=== PATIENT | female | born 1960 | race Caucasian/White ===

== ENCOUNTER → 2017-12-05 10:53 | Outpatient (CLI) | payer BC, SELFPAY ==
--- NOTE | 2017-12-05 10:57 | MM_ITS ---
MM Dig screening mamm BI w/CAD ORDERING PHYSICIAN : Basil Chaudhry MD PATIENT AGE: 57 years GENDER: Female COMPARISON: March 2014, February 2013, February 2012 INDICATION: ITS.REASON: Routine Mammogram Screening no hormones. No complaints noncontributory family history TECHNIQUE: Standard CC and MLO images were obtained. R2 CAD reviewed. FINDINGS: Moderate density breast,/Moderately dense areas of breast. .. Slight decreased sensitivity in areas of breast with increased density. Breast tissue mainly distributed through centralbreast. However overall pattern is similar to previous studies. There has been decreased prominence progression of the fibroglandular elements over time reflecting typical aging change.. No new findings in either breast. No dominant mass nor suspicious calcifications nor good evidence of architectural distortion either breast. Follow-up in one year adequate IMPRESSION: . No new findings of significant concern. Bilateral follow-up in one year. Moderately dense breast bilaterally but with no new areas of concern BI-RADS Category: 2 Benign Finding(s) RECOMMENDED FOLLOW-UP: 1YR 1 YEAR FOLLOW-UP (A letter has been sent to the patient regarding results of the study.)
== END ==
PROVIDERS: PCP Internal Medicine; Visit Provider Nurse Practitioner Obstetrics & Gynecology
DX: Z12.31 Encounter for screening mammogram for malignant neoplasm of breast (principal)
CPT/HCPCS: 77067

== ENCOUNTER → 2018-12-27 12:23 | Outpatient (CLI) | payer BC, SELFPAY ==
--- NOTE | 2018-12-27 15:00 | CT_ITS ---
PROCEDURE: CT ABDOMEN PELVIS WO CON CLINICAL HISTORY: LOWER ABD PAIN Mid left lower quadrant pain COMPARISON: [facility] DIG MAMM-SCREEN [facility] from 04/08/2014 [facility] MM Dig screening mamm BI w/CAD from 12/05/2017 TECHNIQUE: Axial images obtained with sagittal and coronal reformats. All CT scans at the facility use one or more dose reduction, viz: automated exposure control, ma/kV adjustment per patient size (including targeted exams where dose is matched to indication, i.e. head), or iterative reconstruction technique. FINDINGS: There is a 16 mm nodular opacity overlying the right subareolar region. Please correlate with mammogram and possible right breast ultrasound. The lung bases are clear. The liver, gallbladder, spleen, adrenal glands, pancreas, and kidneys have an unremarkable unenhanced appearance. No renal or ureteral calculi. No evidence of appendicitis. No intestinal obstruction or free air. There is mild thickening of the sigmoid colon along with sigmoid diverticulosis. Along superior and medial aspect of the sigmoid colon there appears to be a small inflamed diverticulum with mild stranding of the pericolic fat. No abscess or perforation. No acute bony anomaly IMPRESSION: 1. Suspect mild diverticulitis of the sigmoid colon. No abscess or perforation 2. 16 mm subareolar nodular opacity of the right breast which may be better evaluated with mammography and ultrasound. Dictated by: Prashanth Orlando MD 12/28/2018 08:48 Electronically signed by Prashanth Orlando MD in [place] 12/29/2018 10:36
== END ==
PROVIDERS: PCP Internal Medicine; Visit Provider Internal Medicine
DX: R10.30 Lower abdominal pain, unspecified (principal)
CPT/HCPCS: 74176

== ENCOUNTER → 2019-01-29 09:06 | Outpatient (CLI) | payer BC, SELFPAY ==
--- NOTE | 2019-01-29 09:07 | MM_ITS ---
PROCEDURE: MM DIG SCREENING MAMM BI W/CAD Patient Age:58Y CLINICAL INDICATION: routine screening mamm 58-year-old. Routine screening mammogram. No hormones but no new complaints but CT December 2018 question density right breast COMPARISON: DIGMAMMS MAMMOGRAM SCREEN-[employer] N/C from 10/14/2008 [facility] DIGITAL MAMM-SCREEN BILATERAL from 02/09/2010 [facility]B DIGITAL MAMM-SCREEN BILATERAL from 03/15/2011 DMDXUAVL DIG MAMM-DX UNI ADD VIEWS-LT from 03/31/2011 [facility]B DIGITAL MAMM-SCREEN BILATERAL from 03/13/2012 [facility] DIG MAMM-SCREEN [facility] from 03/19/2013 [facility] DIG MAMM-SCREEN [facility] from 04/08/2014 [facility] MM Dig screening mamm BI w/CAD from 12/05/2017 CT ABDOMEN PELVIS WO CON from 12/27/2018 TECHNIQUE: Standard CC and MLO images were obtained. R2 CAD reviewed. FINDINGS: Moderately dense fibroglandular densities are seen in the central portions of both breast. Right breast: there is a stable round immediate right nipple. This is the round density noted on CT and actually is been stable since mammograms dating back to 2009. It is been attributed to attributed to nipple shadow many of the interval mammograms because of its proximity to the nipple It measures up to 15 mm AP. Although appears slightly denser on today's CC view and MLO views versus previous studies-. I suspect this is most likely due to technical features positioning and technique.. A single punctate benign calcification is seen at its medial margin. However at this point and given its appearance on CT would suggest the patient return for ultrasound and spot views here to include CC MLO and 90 degree spot views... Left breast no new findings of significant concern. Stable. Follow-up 1 year IMPRESSION: Ovoid nodular density immediate posterior to the Right nipple has been present and basically stable since 2009. . (. 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
== END ==
PROVIDERS: PCP Internal Medicine; Visit Provider Nurse Practitioner Obstetrics & Gynecology
DX: Z12.31 Encounter for screening mammogram for malignant neoplasm of breast (principal)
CPT/HCPCS: 77067

== ENCOUNTER → 2019-02-02 14:46 | Outpatient (CLI) | payer BC, SELFPAY ==
--- NOTE | 2019-02-02 14:47 | US_ITS ---
PROCEDURE: US BREAST RT COMPLETE CLINICAL INDICATION: abnormal finding in RT Breast-KNOT/LUMP Palpable area behind the right nipple COMPARISON: [facility] DIG MAMM-SCREEN [facility] from 04/08/2014 MM DIG SCREENING MAMM BI W/CAD from 01/29/2019 FINDINGS: There is a 14 mm hypoechoic nodule with dense posterior acoustical shadowing in the retroareolar region corresponding to the mammographic abnormality. An adjacent cyst is noted at this area lateral to the nodule measuring 5 mm. No other significant anomalies are evident. IMPRESSION: 14 mm hypoechoic nodule with dense posterior acoustical shadowing. This corresponds to the mammographic abnormality. Due to the posterior shadowing and the overall slight increased density would recommend fine needle aspiration/core biopsy with sonographic guidance. BI-RADS category 4 suspicious. Recommend ultrasound-guided core biopsy. Dictated by: Prashanth Orlando MD 02/08/2019 15:41 Electronically signed by Prashanth Orlando MD in [place] 02/08/2019 15:41
== END ==
PROVIDERS: PCP Internal Medicine; Visit Provider Nurse Practitioner Obstetrics & Gynecology
DX: N63.10 Unspecified lump in the right breast, unspecified quadrant (principal)
CPT/HCPCS: 76641

== ENCOUNTER → 2019-03-06 12:36 | Outpatient (CLI) | payer BC, SELFPAY ==
--- NOTE | 2019-03-06 12:37 | US_ITS ---
PROCEDURE: US BIOPSY BREAST CLINICAL INDICATION: US Guided Right Breast Biopsy-Abnormal Mamm COMPARISON: US BREAST RT COMPLETE from 02/02/2019 FINDINGS: Following obtaining informed consent under aseptic conditions and local anesthesia with 1 percent buffered lidocaine, using ultrasound guidance, fine needle aspiration was performed of the hypoechoic periareolar nodule. Following this, 3 core biopsies were obtained with an 18 gauge Karlos-Cut needle. The course did appear to me to contain adequate tissue. The patient tolerated the procedure well without evidence of immediate complication. Pathology: Benign breast with stromal fibrosis suggestive of fibroma toys change. Negative for carcinoma. FNA right breast negative for malignancy IMPRESSION: Successful sonographic guided fine needle aspiration and core biopsy of right breast nodule showing benign findings. Suggest 6 month mammogram and ultrasound follow-up per routine protocol Dictated by: Prashanth Orlando MD 03/07/2019 11:40 Electronically signed by Prashanth Orlando MD in [place] 03/08/2019 18:28
== END ==
PROVIDERS: PCP Internal Medicine; Visit Provider Nurse Practitioner Obstetrics & Gynecology
DX: R92.8 Other abnormal and inconclusive findings on diagnostic imaging of breast (principal); N63.41 Unspecified lump in right breast, subareolar
CPT/HCPCS: 10005; 76942

== ENCOUNTER → 2019-10-11 14:19 | Outpatient (CLI) | payer BC, SELFPAY ==
--- NOTE | 2019-10-11 14:19 | US_ITS ---
PROCEDURE: MM DIG MAMM DX UNILAT RT CAD Digital Breast Tomosynthesis Included CLINICAL INDICATION: 6 mo follow up COMPARISON: [facility] DIG MAMM-SCREEN [facility] from 04/08/2014 [facility] MM Dig screening mamm BI w/CAD from 12/05/2017 MM DIG SCREENING MAMM BI W/CAD from 01/29/2019 US BREAST RT COMPLETE from 02/02/2019 US BREAST RT COMPLETE from 10/11/2019 TECHNIQUE: Standard CC and MLO images and 3D Tomosynthesis was obtained. R2 CAD reviewed. FINDINGS: Average fibroglandular tissue. 1.9 x 1.7 cm lobulated nodule in the retroareolar region on the right with coarse central calcification not significantly changed. No new nodules evident. No malignant appearing mass or malignant-appearing microcalcification. Right breast ultrasound: Hypoechoic retroareolar nodule with posterior acoustical shadowing noted similar to the previous exam with a small adjacent cyst. No new nodules apparent. IMPRESSION: BI-RAD Category: 2 Benign Finding(s) FOLLOW-UP: 6M 6Month Follow-up (A letter has been sent to the patient regarding results of the study.) Dictated by: Prashanth Orlando MD 10/12/2019 11:55 Electronically signed by Prashanth Orlando MD in [place] 10/12/2019 11:55
== END ==
PROVIDERS: PCP Internal Medicine; Visit Provider Nurse Practitioner Obstetrics & Gynecology
DX: R92.8 Other abnormal and inconclusive findings on diagnostic imaging of breast (principal)
CPT/HCPCS: 76641; 77061; 77065; G0279

== ENCOUNTER → 2020-07-11 12:45 | Outpatient (CLI) | payer BC, SELFPAY | PROVIDERS: PCP Internal Medicine; Visit Provider Internal Medicine | DX: G47.33 Obstructive sleep apnea (adult) (pediatric) (principal); G47.10 Hypersomnia, unspecified; R06.83 Snoring | CPT/HCPCS: G0399 ==

== ENCOUNTER → 2020-08-14 08:49 | Outpatient (CLI) | payer BC, SELFPAY ==
--- NOTE | 2020-08-14 08:54 | FL_ITS ---
PROCEDURE: FL UPPER GI W AIR CLINICAL INDICATION: EPIGASTRIC PAIN, NAUSEA Stomach pain COMPARISON: No exams were available for comparison TECHNIQUE: FLUOROSCOPY TIME : FINDINGS: The esophagus, stomach, and duodenum have an unremarkable appearance.There is no evidence of hiatal hernia. No ulcer or mass evident. No mucosal abnormalities apparent. There is normal peristalsis. The duodenal C-loop is nondisplaced. IMPRESSION: Negative upper GI Dictated by: Prashanth Orlando MD 08/14/2020 14:55 Prashanth Orlando MD in [place] 08/14/2020 14:55
== END ==
PROVIDERS: PCP Internal Medicine; Visit Provider Internal Medicine
DX: R10.13 Epigastric pain (principal); R11.0 Nausea
CPT/HCPCS: 74246

== ENCOUNTER → 2020-08-29 10:39 | Outpatient (CLI) | payer BC, SELFPAY ==
[2020-08-29 10:41] LABS: Microscopic, Urine URINE MICROSCOPIC (MICROSCOPIC)
[2020-08-29 11:09] LABS: Basophils % 0.9 % (0.1-2.0); Eosinophils # 0.1 K/mm3 (0.0-0.4); Eosinophils % 2.2 % (0.1-12.0); Hematocrit 43.3 % (37.0-47.0); Hemoglobin 13.9 g/dL (12.2-16.2); Lymphocytes # 1.5 K/mm3 (0.7-4.5); Lymphocytes % 31.2 % (10-50); Mean Corpuscular HGB Conc 32.2 g/dL (31.8-35.4); Mean Corpuscular Hemoglobin 30.5 pg (27.0-31.2); Mean Corpuscular Volume 94.6 fl (81-99); Mean Platelet Volume 7.6 fl (7.4-10.4); Monocytes # 0.4 K/mm3 (0.1-1.0); Monocytes % 7.5 % (1.7-9.3); Neutrophils # 2.8 K/mm3 (1.8-7.8); Neutrophils % 58.2 % (37.0-80.0); Platelet Count 406 K/mm3 (142-424); Red Blood Count 4.57 M/mm3 (4.20-5.40); Red Cell Distribution Width 12.7 % (11.5-17.5); White Blood Count 4.8 K/mm3 (4.8-10.8)
[2020-08-29 11:17] LABS: Appearance,Urine CLEAR (Clear); Bilirubin,Urine Negative (Negative); Blood, Urine Negative (Negative); Color,Urine YELLOW (Yellow); Glucose,Urine (UA) Negative (Negative); Ketones,Urine Negative (Negative); Leukocyte Esterase,Urine 1+ (Negative); Nitrate,Urine Negative (Negative); PH,Urine 6.5 (5.0-8.5); Protein,Urine Negative (Negative); Specific Gravity, Urine 1.015 (1.005-1.030); Urobilinogen,Urine 0.2 EU/dl (0.2)
[2020-08-29 11:45] LABS: Chloride 104 mmol/L (98-107); Potassium 4.4 mmoL/L (3.5-5.1); Sodium 141 mmol/L (136-145)
[2020-08-29 11:47] LABS: Amylase 64 U/L (30-110)
[2020-08-29 11:48] LABS: Alanine Aminotransferase 20 U/L (12-78); Albumin Level 4.7 g/dl (3.5-5.0); Albumin/Globulin Ratio 1.9 (1.1-1.8); Alkaline Phosphatase 70 U/L (38-126); Anion Gap 12.4 mEq/L (5-15); Aspartate Amino Transferase 22 U/L (14-36); Bilirubin,Total 0.7 mg/dl (0.2-1.3); Blood Urea Nitrogen 8 mg/dl (7-17); Calcium 9.7 mg/dl (8.4-10.2); Carbon Dioxide 29 mmol/L (22.0-30.0); Estimated Glomerular Filt Rate 64 ml/min (>60); GFR (African American) 78 ML/MIN (>60); Globulin 2.5 g/dL (1.3-3.2); Glucose 106 mg/dl (74-100); Total Protein,Serum 7.2 g/dl (6.3-8.2)
== END ==
PROVIDERS: Visit Provider Internal Medicine
DX: R10.11 Right upper quadrant pain (principal); R10.31 Right lower quadrant pain; R19.7 Diarrhea, unspecified
CPT/HCPCS: 36415; 80053; 81001; 82150; 85025; 87086

== ENCOUNTER → 2020-09-03 10:45 | Outpatient (CLI) | payer BC, SELFPAY ==
--- NOTE | 2020-09-03 10:52 | US_ITS ---
PROCEDURE: US ABDOMEN COMPLETE CLINICAL INDICATION: RUQ PAIN,RLQ PAIN COMPARISON: US RUQ US RUQ-(ABD LTD)1ORGAN/QUAD/FU from 05/07/2014 FINDINGS: PANCREAS: The visualized pancreas is unremarkable. Tail is partially obscured. LIVER: Diffuse fatty infiltration of the liver is noted. No focal liver lesions are noted. No intra or extrahepatic biliary dilation. The portal vein is patent demonstrates appropriate directional flow. RIGHT KIDNEY: Unremarkable. Normal size and echogenicity. No hydronephrosis LEFT KIDNEY: Unremarkable. Normal size and echogenicity. No hydronephrosis GALLBLADDER: No gallstones, gallbladder wall thickening, pericholecystic fluid, or biliary dilatation. Sludge is noted in the gallbladder. AORTA: No evidence of aneurysmal dilatation. SPLEEN: Unremarkable. Normal size and echogenicity ASCITES: None demonstrated. IMPRESSION: Sludge in the gallbladder. Fatty infiltration of the liver. Dictated by: Nikole Stephenson 09/03/2020 13:31 Nikole Stephenson in [place] 09/03/2020 13:31
== END ==
PROVIDERS: PCP Internal Medicine; Visit Provider Internal Medicine
DX: R10.811 Right upper quadrant abdominal tenderness (principal); R10.812 Left upper quadrant abdominal tenderness
CPT/HCPCS: 76700

== ENCOUNTER → 2020-09-10 08:37 | Outpatient (CLI) | payer BC, SELFPAY ==
--- NOTE | 2020-09-10 09:06 | NM_ITS ---
PROCEDURE: NM HEPATOBILIARY WO PHARM CLINICAL INDICATION: RUQ PAIN, GALLBLADDER SLUDGE, DIARRHEA COMPARISON: US US ABDOMEN COMPLETE from 09/03/2020 TECHNIQUE: DOSE: 8.46 mCi technetium Choletec. Fatty meal was given with Ensure FINDINGS: Homogeneous activity is present within the hepatic parenchyma. Activity is present in the gallbladder by 10 minutes. Activity is present in the small bowel by 10 minutes. The gallbladder ejection fraction is calculated to be 70 percent. No pain reported with fatty meal ingestion. IMPRESSION: Unremarkable hepatobiliary scan with normal gallbladder ejection fraction Dictated by: Prashanth Orlando MD 09/10/2020 12:54 Prashanth Orlando MD in [place] 09/10/2020 12:54
--- NOTE | 2020-09-10 09:33 | HMH.ITSHM ---
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 []ROSUVASTATIN ASA LEVOTHYROXINE VITAMIN D3 COQ10 FAMOTIDINE OMEPRAZOLE
== END ==
PROVIDERS: PCP Internal Medicine; Visit Provider Internal Medicine
DX: K82.8 Other specified diseases of gallbladder (principal); R10.11 Right upper quadrant pain; R19.7 Diarrhea, unspecified
CPT/HCPCS: 78226

== ENCOUNTER → 2020-09-16 08:21 | Outpatient (CLI) | payer BC, SELFPAY ==
[2020-09-16 08:24] LABS: Adenovirus F 40/41, stool Not Detected (NotDetected); Astrovirus Not Detected (NotDetected); Campylobacter Not Detected (NotDetected); Cryptosporidium Not Detected (NotDetected); Cyclospora Cayetanesis Not Detected (NotDetected); Entamoeba histolytica Not Detected (NotDetected); Enteroaggregative E coli Not Detected (NotDetected); Enteropathogenic E coli Not Detected (NotDetected); Enterotoxigenic E coli Not Detected (NotDetected); Giardia lamblia Not Detected (NotDetected); Norovirus Not Detected (NotDetected); Plesimonas Shigalloides, PCR Not Detected (NotDetected); Rotavirus A Not Detected (NotDetected); Salmonella, PCR Not Detected (NotDetected); Sapovirus Not Detected (NotDetected); Shiga-like toxin E coli Not Detected (NotDetected); Shigella Enterovasive E coli Not Detected (NotDetected); Vibrio Cholerae Not Detected (NotDetected); Vibrio, PCR Not Detected (NotDetected); Yersinia Entercolitica, PCR Not Detected (NotDetected)
[2020-09-16 14:37] LABS: Clostridium Difficile A/B, PCR Detected (NotDetected)
== END ==
PROVIDERS: Visit Provider Internal Medicine
DX: R19.7 Diarrhea, unspecified (principal); A04.72 Enterocolitis due to Clostridium difficile, not specified as recurrent
CPT/HCPCS: 87205; 87507

== ENCOUNTER → 2020-11-18 17:29 | Outpatient (CLI) | payer BC, SELFPAY ==
[2020-11-18 17:32] LABS: Adenovirus F 40/41, stool Not Detected (NotDetected); Astrovirus Not Detected (NotDetected); Campylobacter Not Detected (NotDetected); Clostridium Difficile A/B, PCR Not Detected (NotDetected); Cryptosporidium Not Detected (NotDetected); Cyclospora Cayetanesis Not Detected (NotDetected); Entamoeba histolytica Not Detected (NotDetected); Enteroaggregative E coli Not Detected (NotDetected); Enteropathogenic E coli Not Detected (NotDetected); Enterotoxigenic E coli Not Detected (NotDetected); Giardia lamblia Not Detected (NotDetected); Norovirus Not Detected (NotDetected); Plesimonas Shigalloides, PCR Not Detected (NotDetected); Rotavirus A Not Detected (NotDetected); Salmonella, PCR Not Detected (NotDetected); Sapovirus Not Detected (NotDetected); Shiga-like toxin E coli Not Detected (NotDetected); Shigella Enterovasive E coli Not Detected (NotDetected); Vibrio Cholerae Not Detected (NotDetected); Vibrio, PCR Not Detected (NotDetected); Yersinia Entercolitica, PCR Not Detected (NotDetected)
== END ==
PROVIDERS: Visit Provider Internal Medicine
DX: R19.7 Diarrhea, unspecified (principal)
CPT/HCPCS: 87507

== ENCOUNTER → 2020-11-24 09:57 | Outpatient (POV) | payer BC, SELFPAY | PROVIDERS: Visit Provider Nurse Practitioner Family | DX: Z00.00 Encounter for general adult medical examination without abnormal findings (principal) ==

== ENCOUNTER → 2020-11-24 17:07 | Outpatient (CLI) | payer BC, SELFPAY | PROVIDERS: Visit Provider Nurse Practitioner Family | DX: A04.72 Enterocolitis due to Clostridium difficile, not specified as recurrent (principal); R19.7 Diarrhea, unspecified; R11.0 Nausea | CPT/HCPCS: 87493 ==

== ENCOUNTER → 2020-12-30 11:49 | Outpatient (CLI) | payer BC, SELFPAY | PROVIDERS: PCP Internal Medicine; Visit Provider Internal Medicine | DX: Z20.822 Contact with and (suspected) exposure to COVID-19 (principal); U07.1 COVID-19 | CPT/HCPCS: U0003 ==

== ENCOUNTER 2021-01-01 11:52 | Emergency (ER) | payer BC, SELFPAY ==
[2021-01-01 11:52] VITALS: BP 90/54; PULSE 69; RESP 16; TEMP 37.3; O2SAT 98; BMI 27.1
--- NOTE | 2021-01-01 11:57 | XR_ITS ---
PROCEDURE: XR CHEST PORTABLE CLINICAL HISTORY: cough COMPARISON: CR CXR1 CHEST-PORTABLE from 05/09/2012 FINDINGS: The cardiomediastinal silhouette and pulmonary vascularity are within normal limits. The lungs are clear without infiltrates, suspicious nodules, or pleural effusions. No acute bony abnormalities. IMPRESSION: No acute findings. Dictated by: Prashanth Orlando MD 01/01/2021 13:05 Prashanth Orlando MD in [place] 01/01/2021 13:05
--- NOTE | 2021-01-01 11:58 | HMH.EDGENADL ---
ED Disposition Clinical Impression: COVID-19 Fatigue Qualifiers: Fatigue type: unspecified Qualified Code(s): R53.83 - Other fatigue Disposition: Home, Self-Care Condition on Discharge: Fair Instructions: DI for COVID-19 (Suspected or Confirmed ), DI for Dehydration -- Adult, DI for Fatigue Additional Instructions: You have been evaluated for body aches, fatigue, secondary to COVID-19. Please stay hydrated. Take Tylenol and ibuprofen. Follow-up with your primary care doctor. Return to the emergency department for any new or worsening symptoms. Time of Disposition: 13:32 - Critical Care Critical Care Time: No Attestation: On , the high probability of a clinically significant, sudden or life threatening deterioration of the following system(s) required my full and direct attention, intervention and personal management. The time I documented below is in addition to time spent performing reported procedures but includes the following listed in this critical care notation. Medical Decision Making - Medical Records Medical records reviewed: Yes: I reviewed the patient's medical records. - Sloan Inquiry Pt receiving controlled substance: No Vital Signs: 01/01/21 11:52 Temperature 99.1 F Temperature Source Oral Pulse Rate [Radial] 69 Respiratory Rate 16 Blood Pressure [Right Radial Artery] 90/54 L Blood Pressure Mean [Right Radial Artery] 66 Blood Pressure Position [Right Radial Artery] Sitting 02 Sat by Pulse Oximetry 98 Oxygen Delivery Method Room Air - Lab Data Lab Results 01/01/21 11:17: WBC 18.8 H, RBC 4.36, Hgb 13.8, Hct 42.2, MCV 96.7, MCH 31.7 H, MCHC 32.8, RDW 13.0, Plt Count 553 H, MPV 8.6, Neut % (Auto) 79.5, Lymph % (Auto) 16.5, [place] % (Auto) 3.6, Eos % (Auto) 0.1, Baso % (Auto) 0.2, Neut # (Auto) 15.0 H, Lymph # (Auto) 3.1, [place] # (Auto) 0.7, Eos # (Auto) 0.0, Baso # (Auto) 0.0, Total Counted 100, Neutrophils % (Manual) 78 H, Lymphocytes % (Manual) 19, Monocytes % (Manual) 3, Platelet Estimate Normal, Macrocytosis 1+ 01/01/21 11:17: Sodium 140, Potassium 3.5, Chloride 104, Carbon Dioxide 26, Anion Gap 13.5, BUN 22 H, Creatinine 1.00, Estimated Creat Clear 63, Estimated GFR 57 L, Est GFR ( Amer) 68, Glucose 112 H, Calcium 9.0, Total Bilirubin 0.6, AST 19, ALT 16, Alkaline Phosphatase 63, Troponin I < 0.01, Total Protein 6.6, Albumin 3.9, Globulin 2.7, Albumin/Globulin Ratio 1.4 Result diagrams: 01/01/21 11:17 01/01/21 11:17 Orders (Tests/Meds): ED MEDICATIONS Discontinued Medications Generic Name Dose Route Start Last Admin Trade Name Freq PRN Reason Stop Dose Admin Sodium Chloride 1,000 mls @ 999 mls/hr 01/01/21 12:15 01/01/21 12:29 Sod Chlor 0.9% 1000ml Bag IV 01/01/21 13:15 999 mls/hr .Q1H1M MECHELLE Administration ORDERS Category Date Time Status Troponin I Q3H Lab 01/01/21 15:00 Ordered Troponin I Q3H Lab 01/01/21 18:00 Ordered ECG Request by /Nse Stat Y 01/01/21 11:57 Ordered Medical Decision Narrative: In summary this is a 60-year-old female with history of coronary artery disease presenting to the emergency department with weakness and near syncope. She has been Covid positive for 3 days. Differential diagnoses include viral syndrome, COVID-19, dehydration, electrolyte abnormality. Cannot exclude atypical ACS. Will obtain CBC, CMP, chest x-ray, EKG, troponin profile. Patient given IV fluid bolus Initial laboratory results show elevated white blood cell count at 18,000. Otherwise labs are reassuring. No kidney injury. No abnormality of glucose or electrolytes. Troponin undetectable. Chest x-ray unremarkable. On reassessment patient is feeling better after IV fluids. She has no hypoxia or respiratory distress. Counseled on Covid management. Hydration. Follow-up with PCP. Given return precautions General Adult HPI - General Chief complaint: Weakness Stated complaint: WEAKNESS Time Seen by Provider: 01/01/21 11:58 Mode of Arrival:
[2021-01-01 12:08] LABS: Basophils % 0.2 % (0.1-2.0); Eosinophils % 0.1 % (0.1-12.0); Hematocrit 42.2 % (37.0-47.0); Hemoglobin 13.8 g/dL (12.2-16.2); Lymphocytes # 3.1 K/mm3 (0.7-4.5); Lymphocytes % 16.5 % (10-50); Mean Corpuscular HGB Conc 32.8 g/dL (31.8-35.4); Mean Corpuscular Hemoglobin 31.7 pg (27.0-31.2); Mean Corpuscular Volume 96.7 fl (81-99); Mean Platelet Volume 8.6 fl (7.4-10.4); Monocytes # 0.7 K/mm3 (0.1-1.0); Monocytes % 3.6 % (1.7-9.3); Neutrophils % 79.5 % (37.0-80.0); Platelet Count 553 K/mm3 (142-424); Red Blood Count 4.36 M/mm3 (4.20-5.40); White Blood Count 18.8 K/mm3 (4.8-10.8)
[2021-01-01 12:10] LABS: MANUAL DIFFERENTIAL MANUAL DIFFERENTIAL (MANUAL DIFF)
[2021-01-01 12:22] LABS: Lymphocytes % 19 % (10-50); Macrocytosis 1+; Monocytes % 3 % (2-9); Neutrophils % 78 % (42-76); Platelet Estimate Normal; Total Cells Counted 100
[2021-01-01 12:23] LABS: Alanine Aminotransferase 16 U/L (12-78); Albumin Level 3.9 g/dl (3.5-5.0); Albumin/Globulin Ratio 1.4 (1.1-1.8); Alkaline Phosphatase 63 U/L (38-126); Anion Gap 13.5 mEq/L (5-15); Aspartate Amino Transferase 19 U/L (14-36); Bilirubin,Total 0.6 mg/dl (0.2-1.3); Blood Urea Nitrogen 22 mg/dl (7-17); Carbon Dioxide 26 mmol/L (22.0-30.0); Chloride 104 mmol/L (98-107); Creatinine Clearance Estimated 63 mL/min (50-200); Estimated Glomerular Filt Rate 57 ml/min (>60); GFR (African American) 68 ML/MIN (>60); Globulin 2.7 g/dL (1.3-3.2); Glucose 112 mg/dl (74-100); Potassium 3.5 mmoL/L (3.5-5.1); Sodium 140 mmol/L (136-145); Total Protein,Serum 6.6 g/dl (6.3-8.2)
[2021-01-01 12:35] LABS: Troponin I < 0.01 ng/ml (0.00-0.034)
--- NOTE | 2021-01-01 13:16 | PC.NURSE ---
PT AMBULATED UP TO BATHROOM
[2021-01-01 14:00] VITALS: BP 102/52; PULSE 72; RESP 20; TEMP 37.3; O2SAT 100
== END 2021-01-01 14:00 | disposition home or self-care (01) ==
PROVIDERS: Emergency Provider Emergency Medicine
DX: U07.1 COVID-19 (principal); R53.83 Other fatigue; I25.10 Atherosclerotic heart disease of native coronary artery without angina pectoris; I25.2 Old myocardial infarction; Z88.0 Allergy status to penicillin; Z79.899 Other long term (current) drug therapy
CPT/HCPCS: 71045; 80053; 84484; 85007; 85025; 96365; 99282

== ENCOUNTER → 2022-05-21 09:50 | Outpatient (CLI) | payer BC, SELFPAY ==
--- NOTE | 2022-05-21 09:54 | MM_ITS ---
PROCEDURE INFORMATION: Exam: MG Bilateral Screening 3D Mammography Exam date and time: 05/21/2022 9:46 AM Age: 61 years old Clinical indication: Screening examination TECHNIQUE: Imaging protocol: Bilateral Screening tomosynthesis and 2D mammography including computer-aided detection (CAD) when performed. COMPARISON: 1. MG MM DIG MAMM DX UNILAT RT CAD 10/11/2019 2:27 PM 2. MG MM DIG SCREENING MAMM BI W/CAD 01/29/2019 9:25 AM FINDINGS: MAMMOGRAPHY: Breast composition: There are scattered areas of fibroglandular density. Mass: No suspicious masses. Architectural distortion: None. Calcifications: No suspicious calcifications. Asymmetric density: None. Skin thickening: None. Axillary adenopathy: None. IMPRESSION: No mammographic evidence of malignancy. Annual screening is recommended unless otherwise clinically indicated. ASSESSMENT: BI-RADS Category 1: Negative
== END ==
PROVIDERS: PCP Internal Medicine; Visit Provider Nurse Practitioner Obstetrics & Gynecology
DX: Z12.31 Encounter for screening mammogram for malignant neoplasm of breast (principal)
CPT/HCPCS: 77063; 77067

== ENCOUNTER → 2022-10-27 08:51 | Outpatient (POV) | payer BC, SELFPAY ==
--- NOTE | 2022-10-27 09:07 | EXP.PAIN.OV ---
HPI Data of Consult Patient: new to practice Consult date: 10/27/22 Requesting Physician: Chio Whalen APRN Primary Care Provider: Vinod Crooks MD Consult Narrative Reason for consult: Neck pain, right shoulder pain, bilateral arm pain History of present illness: Ms. Ng is a 61 year old female who presents today as a new patient. She is a referral from Dr. Crooks's office. Today she rates her pain a 8 out of 10. Patient states she has pain all in her neck with radiating symptoms to her right shoulder and down into her arm. Patient does state this has been going on for years and progressively worsened over time. She does state the last few months have gotten worse. Patient does describe this as an aching, throbbing sensation with numbness and tingling into her bilateral hands however she states the right is the worst side. She does state this interferes with her ability perform activities of daily living such as cooking and cleaning. She states that it seems to be aggravated when she is driving or sitting for prolonged periods of time and that frequently it is worse when she is sleeping and that she is often woken up by the numbness. Patient does states she also has decreased range of motion.. Patient does state that she previously had a shoulder surgery related to an impingement back in 1998. Patient states that she has had an injection into the shoulder that did provide approximately 6 months of relief and that she also did physical therapy that did help. She states she was even sent to physical therapy who went over 4 different exercises that did provide significant relief and target her neck issues. She does continue to do massage therapy and does state this helps. Patient denies any new trauma or injury. She has tried [id number] Tylenol and ibuprofen along with heat and ice and topicals with no additional relief. Patient is currently managed with gabapentin 100 mg daily from her primary care doctor's office. Patient denies any previous kidney issues. She does state that back in 2011 she did have a heart attack and had 1 stent placed. Her Sloan is [phone]. Its been reviewed and appropriate. CC: Chio Whalen APRN [facility] Disclaimer: The information contained in this section may have been updated after the patient was seen, as this information can be updated by other users. Social History Smoking Status: Never smoker alcohol intake: never current occupational status: employed Travel in the last 8 weeks: Inside the [facility] housing: house Review of Systems Review of Systems Review of systems:: pertinent systems reviewed and negative unless documented below Review of systems (narrative): Review of Systems: General: No recent weight changes, no fever, no sleep disturbances Respiratory: No cough, no shortness of air, no recurring pulmonary infections Cardiovascular/peripheral vascular: No chest pain, no palpitations, no edema, no shortness of breath Gastrointestinal: No new onset incontinence, normal bowel movements reported Genitourinary: No new onset incontinence Musculoskeletal: Neck pain, right shoulder pain, bilateral arm pain Psychiatric: [Normal mood/affect] Neurological: [Denies weakness in extremities], [denies balance issues] Meds Home Medications and Allergies Home Medications Medication Instructions Recorded Confirmed Type aspirin 81 mg tablet,delayed 81 mg PO DAILY 12/05/17 01/31/19 History release (Adult Low Dose Aspirin) bisoprolol fumarate 5 mg tablet PO 90 days ##45 12/05/17 01/31/19 History cholecalciferol (vitamin D3) 25 1,000 unit PO DAILY 12/05/17 01/31/19 History mcg (1,000 unit) capsule coenzyme Q10 10 mg capsule (Co 10 mg PO TID 12/05/17 01/31/19 History Q-10) famotidine 20 mg tablet PO 30 days ##30 12/05/17 01/31/19 History levothyroxine 50 mcg tablet PO 90 days ##90 12/05/17 01/31/19 History rosuvastatin 10 mg tablet (Crestor) 10 mg PO .3 ti
[2022-10-27 10:11] VITALS: BP 135/71; PULSE 69; RESP 17; O2SAT 99; BMI 30.2
== END ==
PROVIDERS: PCP Internal Medicine; Visit Provider Nurse Practitioner Family
DX: M50.10 Cervical disc disorder with radiculopathy, unspecified cervical region (principal); M25.78 Osteophyte, vertebrae; M79.601 Pain in right arm; M79.602 Pain in left arm; M25.511 Pain in right shoulder; G89.29 Other chronic pain
CPT/HCPCS: 99202; G0463

== ENCOUNTER 2022-11-09 09:51 | Day surgery (SDC) | payer BC, SELFPAY ==
[2022-11-09 10:03] VITALS: BP 118/68; PULSE 69; RESP 18; TEMP 36.4; O2SAT 96; BMI 30.2
[2022-11-09 10:24] VITALS: BP 135/80; PULSE 79; RESP 18; O2SAT 97
[2022-11-09 10:25] VITALS: BP 135/80; PULSE 79; RESP 18; O2SAT 97
[2022-11-09 10:31] VITALS: BP 129/72; PULSE 61; RESP 18; O2SAT 96
--- NOTE | 2022-11-09 10:32 | P.PCN_ITS ---
Procedure Date: 11/09/22 Time: 10:20 Anesthesiologist:: Wili Aguilar CRNA Complications:: None Pre-procedure Diagnosis:: Degenerative disc cervical spine multilevels. Cervical radiculopathy. Post-procedure Diagnosis:: Same. Indications for Procedure:: This patient is a very pleasant 61-year-old female that comes our clinic today for cervical epidural steroid injection. Patient describes posterior cervical neck pain as constant, dull, aching with bilateral arm radiculopathy. She rates her pain 8/10. Procedure Details:: Procedure:Cervical epidural steroid injection Informed consent was obtained and the risks and benefits of the procedure were explained to the patient. The patient was taken to the procedure room and noninvasive monitors placed, including noninvasive blood pressure cuff and pulse oximeter. The neck was prepped using Chloraprep as a cleansing solution. The C6- C7 interspace was viewed using fluroscopy. The skin and subcutaneous tissues were anesthetized using lidocaine 1.5% and a 25-gauge needle. After this an 18- gauge Touhy epidural needle was placed into the C6-C7 interspace under fluroscopy guidance and advanced using loss of resistance to air until the epidural space was encountered. After confirmation of needle placement in the epidural space using contrast dye, a solution containing normal saline, 2 mL and Depo-Medrol 80 mg was incrementally injected into the cervical epidural space.~ The patient tolerated the procedure well with no complications. The patient was observed in the Pain Clinic and then discharged home neurologically intact. Plan and Disposition:: Patient was discharged without incident.
== END 2022-11-09 10:31 | disposition home or self-care (01) ==
PROVIDERS: PCP Internal Medicine; Visit Provider Nurse Anesthetist, Certified Registered
DX: M50.123 Cervical disc disorder at C6-C7 level with radiculopathy (principal)
CPT/HCPCS: 62321; J1040; Q9966

== ENCOUNTER → 2022-11-22 11:19 | Outpatient (POV) | payer BC, SELFPAY ==
--- NOTE | 2022-11-22 11:36 | EXP.PAIN.SOA ---
[facility] Pain Management SOAP Note Subjective:: Patient is a pleasant 62-year-old female who presents today for follow-up of cervical epidural steroid injection C6-C7 on 11/09/2022. We are currently treating the patient for degenerative disc disease of cervical spine with cervical radiculopathy symptoms, bilateral arm pain. Today she rates her pain a 3 out of 10. Patient denies any new trauma or injury. She denies any change in location or type of pain she experiences. Patient states she has had at least 75% improvement following this injection and feels like it still continuing to provide additional relief. Patient states the first 4 to 5 days she had 100% improvement of all her radicular symptoms and numbness. She does state that she continues to have significant improvement of her right shoulder symptoms and feels overall more functional on a day-to-day basis. She does state that she will occasionally still have stiffness however it is much more tolerable. Patient is currently managed with gabapentin 100 mg daily from an outside provider. Her Sloan is [id number]. Its been reviewed and appropriate. Review of Systems: General: No recent weight changes, no fever, no sleep disturbances Respiratory: No cough, no shortness of air, no recurring pulmonary infections Cardiovascular/peripheral vascular: No chest pain, no palpitations, no edema, no shortness of breath Gastrointestinal: No new onset incontinence, normal bowel movements reported Genitourinary: No new onset incontinence Musculoskeletal: Neck pain Psychiatric: [Normal mood/affect] Neurological: [Denies weakness in extremities], [denies balance issues] Objective:: Physical Exam: General: Alert and oriented x3, no acute distress, pleasant and cooperative Lungs: Respirations even and unlabored, symmetrical chest expansion Eyes: PERRL Musculoskeletal: Flexion and extension of cervical [spine] somewhat guarded secondary to pain, [antalgic gait noted] Neurological: Speech clear, no gross sensory deficit Assessment:: Degenerative disc disease of cervical spine with cervical radiculopathy symptoms, bilateral arm pain Plan:: Patient has had significant improvement following her cervical epidural and does not require any additional injective therapy at this time. Patient will return to clinic in 1 month for reevaluation of symptoms and plan of care. Patient has been instructed to contact the clinic with any concerns before the next appointment. Dr. García has reviewed this note and agrees with this plan of care. This note was dictated using voice recognition software and make contain errors or omissions. [facility] Disclaimer: The information contained in this section may have been updated after the patient was seen, as this information can be updated by other users. Medical History CAD (coronary artery disease) GERD (gastroesophageal reflux disease) HLD (hyperlipidemia) HTN (hypertension) Hypothyroidism Myocardial infarct Surgical History H/O colonoscopy H/O dilation and curettage Family History Other Arthritis Cancer Hypertension Social History Smoking Status: Never smoker alcohol intake: never current occupational status: employed Travel in the last 8 weeks: None housing: house
[2022-11-22 11:44] VITALS: BP 119/66; PULSE 69; RESP 18; O2SAT 97
== END ==
PROVIDERS: Visit Provider Nurse Practitioner Family
DX: M50.10 Cervical disc disorder with radiculopathy, unspecified cervical region (principal); M79.601 Pain in right arm; M79.602 Pain in left arm
CPT/HCPCS: 99212; G0463

== ENCOUNTER → 2022-12-20 11:20 | Outpatient (POV) | payer BC, SELFPAY ==
--- NOTE | 2022-12-20 11:31 | EXP.PAIN.SOA ---
[facility] Pain Management SOAP Note Subjective:: Patient is a pleasant 62-year-old female who presents today for 1 month follow-up. We are currently treating the patient for degenerative disc disease of cervical spine with cervical radiculopathy symptoms, bilateral arm pain. Today she rates her pain a 6 out of 10. Patient denies any new trauma or any new injury. She denies any change to location or type of pain she experiences. Patient does states she started to have more pain in her neck with radiating symptoms into her shoulder and arms. Patient does describe this as an aching, throbbing sensation that is worse with increased activity. Patient does state the pain interferes with her ability perform activities of daily living such as cooking and cleaning. Patient previously had a cervical epidural steroid injection of C6-C7 in October that did provide 75% improvement lasting up until this last week. Patient states while that injection was working she was able to increase her activity with decreased pain symptoms and felt overall more functional on a daily basis. Patient is interested in repeating this injection. She is currently managed with gabapentin 100 mg daily from her primary care doctor. Patient denies any side effects from this medication. Her Sloan is [phone]. Its been reviewed and appropriate. Review of Systems: General: No recent weight changes, no fever, no sleep disturbances Respiratory: No cough, no shortness of air, no recurring pulmonary infections Cardiovascular/peripheral vascular: No chest pain, no palpitations, no edema, no shortness of breath Gastrointestinal: No new onset incontinence, normal bowel movements reported Genitourinary: No new onset incontinence Musculoskeletal: Neck pain, bilateral arm pain Psychiatric: [Normal mood/affect] Neurological: [Denies weakness in extremities], [denies balance issues] Objective:: Physical Exam: General: Alert and oriented x3, no acute distress, pleasant and cooperative Lungs: Respirations even and unlabored, symmetrical chest expansion Eyes: PERRL Musculoskeletal: Flexion and extension of cervical [spine] somewhat guarded secondary to pain, [antalgic gait noted] Neurological: Speech clear, no gross sensory deficit Assessment:: Degenerative disc disease of cervical spine with cervical radiculopathy symptoms, bilateral arm pain, right shoulder pain Plan:: Patient is starting to experience worsening pain in her neck and bilateral arms. Patient had limited range of motion of her cervical spine during today's visit. I have discussed with the patient that she may benefit from a repeat cervical epidural steroid injection. Risk and benefits were explained to the patient and she would like to proceed forward with this plan of care. Patient did previously have at least 75% improvement from her first cervical epidural that lasted approximately 2-1/2 months. Patient is not on any blood thinners. We will schedule her for a BLANCA C6-C7. Patient has been instructed to contact the clinic with any concerns before the next appointment. Dr. García has reviewed this note and agrees with this plan of care. This note was dictated using voice recognition software and make contain errors or omissions. [facility] Disclaimer: The information contained in this section may have been updated after the patient was seen, as this information can be updated by other users. Medical History CAD (coronary artery disease) GERD (gastroesophageal reflux disease) HLD (hyperlipidemia) HTN (hypertension) Hypothyroidism Myocardial infarct Surgical History H/O colonoscopy H/O dilation and curettage Family History Other Arthritis Cancer Hypertension Social History Smoking Status: Ne
[2022-12-20 12:16] VITALS: BP 115/68; PULSE 67; RESP 18; O2SAT 96; BMI 30.2
== END ==
PROVIDERS: Visit Provider Nurse Practitioner Family
DX: M50.10 Cervical disc disorder with radiculopathy, unspecified cervical region (principal); M79.601 Pain in right arm; M79.602 Pain in left arm; M25.511 Pain in right shoulder
CPT/HCPCS: 99212; G0463

== ENCOUNTER → 2023-01-07 11:07 | Outpatient (POV) | payer BC, SELFPAY ==
--- NOTE | 2023-01-07 12:41 | A.OFFVIS_ITS ---
[facility] Pain Management SOAP Note Subjective:: This patient is a very pleasant 62-year-old female that comes our clinic today for follow-up visit regarding insurance denial requesting repeat cervical epidural steroid injection. Patient has received cervical epidural steroid injection October 2022. She reports 80+ percent improvement in her overall cervical neck pain and bilateral arm radicular symptoms. Patient symptoms have returned. 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 Her pain is in the cervical spine as well as bilateral shoulders and arm radiculopathy. Patient has tried and failed gabapentin. Patient reports gabapentin caused her to be loopy. She does take NSAIDs and Tylenol at times wh ich does help to some degree. I recommend physical therapy for the cervical spine. Also, recommend meloxicam 7.51 p.o. twice daily. Patient will return to see us in 1 month for reevaluation. Objective:: Patient is awake alert [place] x3. In no acute distress. Flexion-extension cervical lumbar spine guarded secondary to pain. Deep tendon reflexes upper and lower extremities normal. Motor strength upper and lower extremities normal. There is no gross sensory deficit. Gait is normal. Assessment:: Degenerative disc cervical spine multilevels. Cervical radiculopathy Plan:: Patient will go to physical therapy for evaluation and treatment. We will start meloxicam 7.5 mg 1 p.o. twice daily. Patient will return to see us in 1 month. Patient's Sloan #[id number] has been reviewed and appropriate. [facility] Disclaimer: The information contained in this section may have been updated after the patient was seen, as this information can be updated by other users. Medical History CAD (coronary artery disease) GERD (gastroesophageal reflux disease) HLD (hyperlipidemia) HTN (hypertension) Hypothyroidism Myocardial infarct Surgical History H/O colonoscopy H/O dilation and curettage Family History Other Arthritis Cancer Hypertension Social History Smoking Status: Never smoker alcohol intake: never substance use type: denies use current occupational status: employed Travel in the last 8 weeks: None housing: house
[2023-01-07 12:42] VITALS: BP 115/69; PULSE 71; RESP 18; O2SAT 94; BMI 31.1
== END ==
PROVIDERS: PCP Internal Medicine; Visit Provider Nurse Anesthetist, Certified Registered
DX: M50.10 Cervical disc disorder with radiculopathy, unspecified cervical region (principal)
CPT/HCPCS: 99212; G0463

== ENCOUNTER → 2023-02-04 10:24 | Outpatient (POV) | payer BC, SELFPAY ==
[2023-02-04 10:36] VITALS: BP 134/58; PULSE 70; RESP 20; BMI 31.1
--- NOTE | 2023-02-04 10:45 | A.OFFVIS_ITS ---
[facility] Pain Management SOAP Note Subjective:: This patient is a very pleasant 62-year-old female that comes our clinic today for follow-up visit after beginning physical therapy for cervical spine pain. She states physical therapy is helping to some degree. They are using traction, dry needling, muscle stimulator. Patient's MRI shows degenerative disc multilevels lumbar spine. Patient having cervical radiculopathy into bilateral shoulders and arms. Patient had cervical epidural steroid injection on 11/09/2022. Patient states she had 80 to 90% improvement terms of her overall cervical symptoms. Patient requesting a repeat of the cervical epidural steroid injection. I think this is reasonable. I think this would be a good adjunct in combination with physical therapy of the cervical spine. Patient is not on blood thinner. Patient rates her pain today 08/02. Patient's Sloan #[id number] been reviewed and appropriate. Patient tried and failed meloxicam. She continues with Tylenol. Objective:: Patient is awake alert [place] x3. No acute distress. Flexion-extension cervi traci spine somewhat guarded secondary to pain. Deep tendon reflexes upper and lower extremities normal. Motor strength upper and lower extremities normal. There is no gross sensory deficit. Gait is normal. Assessment:: Degenerative disc cervical spine multilevels. Cervical radiculopathy. Plan:: We will plan a repeat cervical epidural steroid injection C6-7 level. Also, patient will continue with physical therapy. [facility] Disclaimer: The information contained in this section may have been updated after the patient was seen, as this information can be updated by other users. Medical History CAD (coronary artery disease) GERD (gastroesophageal reflux disease) HLD (hyperlipidemia) HTN (hypertension) Hypothyroidism Myocardial infarct Surgical History H/O colonoscopy H/O dilation and curettage Family History Other Arthritis Cancer Hypertension Social History (Updated 01/07/23 @ 12:44 by Wili Aguilar CRNA) Smoking Status: Never smoker alcohol intake: never substance use type: denies use current occupational status: other Travel in the last 8 weeks: None housing: house
== END ==
PROVIDERS: PCP Internal Medicine; Visit Provider Nurse Anesthetist, Certified Registered
DX: M50.123 Cervical disc disorder at C6-C7 level with radiculopathy (principal)
CPT/HCPCS: 99212; G0463

== ENCOUNTER 2023-02-22 08:53 | Day surgery (SDC) | payer BC, SELFPAY ==
[2023-02-22 09:02] VITALS: BP 151/94; PULSE 73; RESP 18; TEMP 36.5; O2SAT 96; BMI 30.5
[2023-02-22 09:08] VITALS: BP 140/78; PULSE 70; RESP 18; O2SAT 95
[2023-02-22 09:09] VITALS: BP 140/78; PULSE 69; RESP 18; O2SAT 95
[2023-02-22 09:16] VITALS: BP 148/77; PULSE 63; RESP 18; O2SAT 96
--- NOTE | 2023-02-22 09:22 | P.PCN_ITS ---
Procedure Date: 02/22/23 Time: 08:55 Anesthesiologist:: Wili Aguilar CRNA Complications:: None Pre-procedure Diagnosis:: Degenerative disc cervical spine multilevels. Cervical radiculopathy. Post-procedure Diagnosis:: Same. Indications for Procedure:: Patient is a very pleasant 60-year-old female who comes to the clinic today for repeat cervical epidural steroid injection C6-7. Patient had moderate to significant improvement terms of her overall cervical neck pain as well as bilateral arm radicular symptoms with her initial injection at the same level. Patient describes cervical neck pain as constant, dull, aching. Patient also complains of bilateral arm radicular symptoms at times. Procedure Details:: Procedure:Cervical epidural steroid injection Informed consent was obtained and the risks and benefits of the procedure were explained to the patient. The patient was taken to the procedure room and noninvasive monitors placed, including noninvasive blood pressure cuff and pulse oximeter. The neck was prepped using Chloraprep as a cleansing solution. The C6- C7 interspace was viewed using fluroscopy. The skin and subcutaneous tissues were anesthetized using lidocaine 1.5% and a 25-gauge needle. After this an 18- gauge Touhy epidural needle was placed into the C6-C7 interspace under fluroscopy guidance and advanced using loss of resistance to air until the epidural space was encountered. After confirmation of needle placement in the epidural space using contrast dye, a solution containing normal saline, 2 mL and Depo-Medrol 80 mg was incrementally injected into the cervical epidural space.~ The patient tolerated the procedure well with no complications. The patient was observed in the Pain Clinic and then discharged home neurologically intact. Plan and Disposition:: Patient was discharged out incident.
== END 2023-02-22 09:16 | disposition home or self-care (01) ==
PROVIDERS: PCP Internal Medicine; Visit Provider Nurse Anesthetist, Certified Registered
DX: M50.123 Cervical disc disorder at C6-C7 level with radiculopathy (principal)
CPT/HCPCS: 62321; J1040; Q9966

== ENCOUNTER 2023-02-24 14:30 | Outpatient (RCR) | payer BC, SELFPAY ==
--- NOTE | 2023-02-11 11:53 | HMH.PTOPEV ---
PT Outpatient Evaluation Rehab PT Outpatient Evaluation Start: 01/21/23 11:28 Freq: Status: Active Protocol: Document 01/21/23 11:28 LEO (Rec: 01/21/23 11:48 LEO [id number]) E-signed By Kal Dougherty, PT Outpatient Therapy Subjective History Subjective History Patient is a 62 year old female presenting to outpatient PT with reports of cervical spine pain with intermittent BUE radicular symptoms. Symptoms of insidious onset starting approx 2 months ago. Patient received an injection of the cervical spine, which provided approx 6 weeks relief. Most recent imaging indicates cervical degenerative changes/ osteophytes most prominent at C5-6. Comorbidities include hx of SD, stent x 1, HTN and R shoulder SAD. New diagnosis of cancer in past 12 No months? Chief Complaint Pain,Spasms,Stiff Symptom Type Ache,Sharp,Numbness,Tingling Symptoms Relieved By Rest/Positioning,Ice,OTC Meds Symptoms Aggravated By Physical Activity,Lifting Prior Functional Limitations None Current Functional Limitations Reaching,Lifting,Housework Symptom Description Constant but Variable Level of pain today (0-10) 4 Pain scale - at its best (0-10) 3 Pain scale - at its worst (0-10) 6 Cervical Eval Palpation Cervical Muscles R Suboccipital,L Suboccipital, R CT Junction,L CT Junction,R Upper Trapezius,L Upper Trapezius,R Thoracic Paraspinals,L Thoracic Paraspinals Cervical/Thoracic Palpation Findings Tenderness,Spasm Posture Head/C-Spine Posture Sitting Position C-Spine Flattened Head/C-Spine Posture Standing Position C-Spine Flattened Flexibility Deficits Upper Trapezius Muscle Length (R) Moderate Tightness,(L) Moderate Tightness Levaetor Scapulae Muscle Length (R) Moderate Tightness,(L) Moderate Tightness Pectoralis Minor Muscle Length (R) Moderate Tightness,(L) Moderate Tightness Passive Joint Mobility Cervical PIVM Dec: R OA L OA R AA L AA R C2/3 L C2/3 R C3/4 L C3/4 R C4/5 L C4/5 R C5/6 L C5/6 R C6/7 L C6/7 R C7/T1 L C7/T1 AROM Cervical Spine Extension Active Range of 52 Motion (degrees) Cervical Spine Flexion Active Range of 36 Motion (degrees) Cervical Spine Right Lateral Flexion 24 Active Range of Motion (degrees) Cervical Spine Left Lateral Flexion 30 Active Range of Motion (degrees) Cervical Spine Right Rotation Active 48 Range of Motion (degrees) Cervical Spine Left Rotation Active 44 Range of Motion (degrees) MMT Bilateral Deltoid (C5) 5 Normal Biceps Brachii Strength Grade 5 Normal Wrist Extension Strength Grade 5 Normal Triceps Brachii Strength Grade 5 Normal Wrist Flexion Strength Grade 5 Normal Extensor Pollicis Longus Strength Grade 5 Normal Finger Abduction Strength Grade 5 Normal Altered Sensation Upper extremity Dermatomes C5,C6 Comment NT Special Test C-Spine Foraminal Compression (Spurling) Positive Left,Positive Right Test C-Spine Foraminal Distraction Test Positive Neck Disability Index Neck Disability Index Section 1: Pain Intensity The pain is moderate at the moment Section 2: Personal Care (washing, I can look after myself dressing, etc.) normally without causing extra pain Section 3: Lifting I can lift heavy weights but it gives extra pain Section 4: Reading I can read as much as I want with moderate pain in my neck Section 5: Headaches I have severe headaches, which come frequently Section 6: Concentration I can concentrate fully when I want to with slight difficulty Section 7: Work I can only do my usual work, but no more Section 8: Driving I can drive my car as long as I want with moderate pain in my neck Section 9: Sleeping My sleep is greatly disturbed (3-5 hrs sleepless) Section 10: Recreation I am able to engage in most, but not all of my usual recreation NDI Score 19 Outpatient Therapy Assessment Impairments Problems/Impairmments Palpation Tenderness,Impaired Range of Motion,Impaired Driving,Impaired Lifting, Impaired Household Care, Impaired Recreational Activities,Impaired Work Activities,Subjective C/O Pain Prognosis Rehab Potential Good Clinical Impression Consistent with Diagnosis Yes Short Term Goals Number of Weeks 2 Decrease Subjective C/O Pain Yes: 5/10 at worst Patient to be Ind w/ HEP Yes Care Home Goals Number of Weeks 4-6 Decreased Palpation Tenderness Yes: 1/4 Increase Range of Motion Yes: WNL Restore Ability to Lift Objects to Yes: 10 lb without difficulty Shoulder Level Restore Ability to Lift Objects Overhead Yes: Improve Ability For Household Care Yes Improve Tolerance to Work Activities Yes Decrease Subjective C/O Pain Yes: 2/10 at worst Outpatient Therapy Plan of Care Treatment Plan May Include Therapeutic Exercise Including Home Yes Exercise Program Manual Therapy Techniques Yes Neuromuscular Re-education Yes Therapeutic Activities to Return to Yes Previous Functional/Work Level ADL/Self Care Education Yes Mechanical Traction Yes Dry Needling Yes Thermal Modalities Yes Electrical Stimulation Yes Ultrasound/Phonophoresis Yes Iontophoresis Yes Massage Yes Eval/Re-Eval Yes Frequency Times per week 2 Duration Number of Weeks 4-6 Addendums This patient is a candidate for social No or vocational rehab? Patient/Guardian verbally acknowledges Yes understanding of treatment program and consents to further treatment? Patient/Guardian verbally acknowledges Yes understanding of diagnosis, prognosis and goals for treatment? Eval Complexity PT Charges 66061 - Moderate Complexity Shoulder/Elbow Eval Shoulder Objective Measurements Elbow Objective Measurements PHYSICIAN CERTIFICATION: I certify the specified therapy services for Constance Ng are required, authorized, and reviewed every 30 days.
== END 2023-02-24 15:30 | disposition home or self-care (01) ==
LOC: PT 14:30
PROVIDERS: PCP Internal Medicine; Visit Provider Nurse Practitioner Family
DX: M50.10 Cervical disc disorder with radiculopathy, unspecified cervical region (principal); M54.2 Cervicalgia
CPT/HCPCS: 20560; 20561; 97010; 97012; 97014; 97110; 97163; 97530; G0283

== ENCOUNTER → 2023-03-10 09:33 | Outpatient (POV) | payer BC, SELFPAY ==
[2023-03-10 09:44] VITALS: BP 125/70; PULSE 84; RESP 18; O2SAT 97; BMI 30.7
--- NOTE | 2023-03-10 10:11 | EXP.PAIN.SOA ---
[facility] Pain Management SOAP Note Subjective:: Patient is a pleasant 62-year-old female who presents today for follow-up of cervical epidural steroid injection C6-C7 on 02/22/2023. We are currently treating the patient for degenerative disc disease of cervical spine with cervical radiculopathy symptoms. Today she rates her pain a 2 out of 10. Patient states she has had at least 75% improvement following this injection. She states that she has been able to increase her activity with decreased pain sensations. She states she will occasionally still have a aching sensation in her right shoulder and a catching sensation in the right side of her neck however it is much more tolerable following the injection. Patient is prescribed gabapentin 100 mg daily from her PCP. She denies any side effects from this medication. Her Sloan has been reviewed and is appropriate. Review of Systems: General: No recent weight changes, no fever, no sleep disturbances Respiratory: No cough, no shortness of air, no recurring pulmonary infections Cardiovascular/peripheral vascular: No chest pain, no palpitations, no edema, no shortness of breath Gastrointestinal: No new onset incontinence, normal bowel movements reported Genitourinary: No new onset incontinence Musculoskeletal: Neck pain Psychiatric: [Normal mood/affect] Neurological: [Denies weakness in extremities], [denies balance issues] Objective:: Physical Exam: General: Alert and oriented x3, no acute distress, pleasant and cooperative Lungs: Respirations even and unlabored, symmetrical chest expansion Eyes: PERRL Musculoskeletal: Flexion and extension of cervical [spine] somewhat guarded secondary to pain, [antalgic gait noted] Neurological: Speech clear, no gross sensory deficit Assessment:: Degenerative disc disease of cervical spine with cervical radiculopathy symptoms Plan:: Patient has had significant improvement following her cervical epidural and does not require any additional injective therapy at this time. Patient will return to clinic in 1 month for reevaluation of symptoms and plan of care. Patient has been instructed to contact the clinic with any concerns before the next appointment. Dr. García has reviewed this note and agrees with this plan of care. This note was dictated using voice recognition software and make contain errors or omissions. [facility] Disclaimer: The information contained in this section may have been updated after the patient was seen, as this information can be updated by other users. Medical History CAD (coronary artery disease) GERD (gastroesophageal reflux disease) HLD (hyperlipidemia) HTN (hypertension) Hypothyroidism Myocardial infarct Surgical History H/O colonoscopy H/O dilation and curettage Family History Other Arthritis Cancer Hypertension Social History Smoking Status: Never smoker alcohol intake: never substance use type: denies use current occupational status: employed Travel in the last 8 weeks: None housing: house
== END ==
PROVIDERS: PCP Internal Medicine; Visit Provider Nurse Practitioner Family
DX: M50.10 Cervical disc disorder with radiculopathy, unspecified cervical region (principal)
CPT/HCPCS: 99212; G0463

== ENCOUNTER → 2023-03-28 12:55 | Outpatient (POV) | payer BC, SELFPAY ==
--- NOTE | 2023-03-28 13:11 | EXP.PAIN.SOA ---
[facility] Pain Management SOAP Note Subjective:: Patient is a pleasant 62-year-old female who presents today for follow-up. We are currently treating the patient for degenerative disc disease of cervical spine with cervical radiculopathy symptoms. Today she rates her pain a 5 out of 10. She denies any new trauma or injury. She states that her neck, shoulder and hand sensations are still doing well overall. Patient did previously have a cervical epidural on February 22 that did provide 75% improvement. She states today that she is experiencing worsening headache symptoms and describes it as an aching with pressure and tightness. Patient states she also has migraines. Patient was previously prescribed Zolmitriptan 5 mg by her PCP. Patient states she had not really been having to use this medication due to improvement however in the last couple of weeks it has worsened. Patient states she does have worsening symptoms as the day goes on. Patient states the pain does interfere with her ability perform activities of daily living such as cooking or cleaning. Patient is interested in any injection therapy we may be able to provide. She is prescribed gabapentin 100 mg daily from her PCP. She denies any side effects from this medication. Her Sloan has been reviewed and is appropriate. Review of Systems: General: No recent weight changes, no fever, no sleep disturbances Respiratory: No cough, no shortness of air, no recurring pulmonary infections Cardiovascular/peripheral vascular: No chest pain, no palpitations, no edema, no shortness of breath Gastrointestinal: No new onset incontinence, normal bowel movements reported Genitourinary: No new onset incontinence Musculoskeletal: Headache, occipital neuralgia Psychiatric: [Normal mood/affect] Neurological: [Denies weakness in extremities], [denies balance issues Objective:: Physical Exam: General: Alert and oriented x3, no acute distress, pleasant and cooperative Lungs: Respirations even and unlabored, symmetrical chest expansion Eyes: PERRL Musculoskeletal: Flexion and extension of cervical [spine] somewhat guarded secondary to pain Neurological: Speech clear, no gross sensory deficit Assessment:: Degenerative disc disease of cervical spine with cervical radiculopathy symptoms, occipital neuralgia Plan:: Patient is experiencing increased headaches/migraines with occipital neuralgia. Patient had limited range of motion of her cervical spine during today's visit. I have discussed with the patient that she may benefit from a diagnostic occipital nerve block. Risk and benefits were discussed with the patient and she would like to proceed forward with this plan of care. Patient is not on any blood thinners. We will schedule the patient for bilateral occipital nerve block. Patient has been instructed to contact the clinic with any concerns before the next appointment. Dr. García has reviewed this note and agrees with this plan of care. This note was dictated using voice recognition software and make contain errors or omissions. [facility] Disclaimer: The information contained in this section may have been updated after the patient was seen, as this information can be updated by other users. Medical History CAD (coronary artery disease) GERD (gastroesophageal reflux disease) HLD (hyperlipidemia) HTN (hypertension) Hypothyroidism Myocardial infarct Surgical History H/O colonoscopy H/O dilation and curettage Family History Other Arthritis Cancer Hypertension Social History Smoking Status: Never smoker alcohol intake: never substance use type: denies use current occupational status: employed Travel in the last 8 weeks: None housing: house
[2023-03-28 13:22] VITALS: BP 107/68; PULSE 67; RESP 18; O2SAT 96; BMI 31.1
== END ==
PROVIDERS: PCP Internal Medicine; Visit Provider Nurse Practitioner Family
DX: M50.10 Cervical disc disorder with radiculopathy, unspecified cervical region (principal); M54.81 Occipital neuralgia
CPT/HCPCS: 99212; G0463

== ENCOUNTER 2023-04-12 08:52 | Day surgery (SDC) | payer BC, SELFPAY ==
[2023-04-12 09:11] VITALS: BP 126/85; PULSE 67; TEMP 36.4; O2SAT 97; BMI 30.9
--- NOTE | 2023-04-12 09:37 | EXP.PAIN.PRO ---
Procedure Date: 04/12/23 Time: 09:25 Anesthesiologist:: Wili Aguilar CRNA Complications:: None Pre-procedure Diagnosis:: Occipital neuralgia bilateral Post-procedure Diagnosis:: Same. Indications for Procedure:: Patient is a very pleasant 60-year-old female that comes our clinic today for bilateral occipital nerve block. Patient has chronic headache that she describes as intermittent, dull, sharp, stabbing. Patient reports her pain is 7/10 most days. Procedure Details:: Details of the procedure explained to the patient. Patient taken procedure room patient sitting position. The area over the bilateral occipital area was cleaned using chlorhexidine as a cleansing solution. Using a 25-gauge 1 inch needle the left occipital nerve area was injected in a fanning fashion with 5 cc of a solution containing 2 cc of 0.2% Marcaine +2 cc of 1% lidocaine and 20 mg of Depo-Medrol. The same was carried out over the right occipital nerve. Patient tolerated procedure without difficulty. There are no complications. Plan and Disposition:: Patient was discharged without incident.
[2023-04-12 09:39] VITALS: BP 138/70; PULSE 66; RESP 18; O2SAT 97
[2023-04-12 09:41] VITALS: BP 130/78; BP 138/70; PULSE 61; PULSE 66; RESP 18; O2SAT 97
== END 2023-04-12 09:35 | disposition home or self-care (01) ==
PROVIDERS: PCP Internal Medicine; Visit Provider Nurse Anesthetist, Certified Registered
DX: M54.81 Occipital neuralgia (principal); R51.9 Headache, unspecified
CPT/HCPCS: 64405; J1040

== ENCOUNTER → 2023-04-29 10:22 | Outpatient (POV) | payer BC, SELFPAY ==
--- NOTE | 2023-04-29 10:53 | EXP.PAIN.SOA ---
[facility] Pain Management SOAP Note Subjective:: Patient is a pleasant 62-year-old female who presents today for follow-up of bilateral occipital nerve blocks on 04/12/2023. We are currently treating the patient for degenerative disc disease of cervical spine with cervical radiculopathy symptoms, occipital neuralgia, headaches, migraines. Today she rates her pain a 4 out of 10. Patient states that she has had 100% improvement of her migraine symptoms.. She states she still is experiencing headaches daily but has had no migraines since having this injection. She states she has been able to do more activities with decreased pain symptoms. She does states she still has an aching, stiffness in her neck that does radiate into her upper extremities. Patient does have numbness and tingling however she states from the previous epidural she is continued and did not need her hand braces that she had previously relied on. Patient does also mention that she is experiencing some hand tremors along the right side however it is not anything extreme and is not constant but just occurs from time to time. Patient does state that her neck pain continues to interfere with her ability perform activities of daily living such as cooking and cleaning. Patient on her last epidural did have 75% improvement lasting up until the last week or so. Patient does states she is interested in repeating this injection. Patient is currently managed with gabapentin 100 mg daily from her primary care provider. Her Sloan has been reviewed and is appropriate. Review of Systems: General: No recent weight changes, no fever, no sleep disturbances Respiratory: No cough, no shortness of air, no recurring pulmonary infections Cardiovascular/peripheral vascular: No chest pain, no palpitations, no edema, no shortness of breath Gastrointestinal: No new onset incontinence, normal bowel movements reported Genitourinary: No new onset incontinence Musculoskeletal: Neck pain, arm numbness tingling Psychiatric: [Normal mood/affect] Neurological: [Denies weakness in extremities], [denies balance issues] Objective:: Physical Exam: General: Alert and oriented x3, no acute distress, pleasant and cooperative Lungs: Respirations even and unlabored, symmetrical chest expansion Eyes: PERRL Musculoskeletal: Flexion and extension of cervical [spine] somewhat guarded secondary to pain, [antalgic gait noted] Neurological: Speech clear, no gross sensory deficit Assessment:: Degenerative disc disease of cervical spine with cervical radiculopathy symptoms, headaches, migraine, occipital neuralgia Plan:: Patient is experiencing worsening pain in her neck and upper extremities with limited range of motion. Patient previously had 75% improvement from her last epidural injection that did last more than 2 months. I have discussed with the patient that she may benefit from repeat cervical epidural injection. Risk and benefits were discussed with the patient and she would like to proceed forward with this plan of care. Patient is not on any blood thinners. Patient has tried and failed conservative therapy such as oral medication, heat and ice, topicals, physical therapy, at home stretching exercise for longer than 6 weeks. We will schedule the patient for repeat cervical epidural steroid injection C6-C7. All epidurals are done under fluoroscopic guidance to confirm placement. Patient has been counseled to contact our office with any questions or concerns before their next appointment date. This note has been dictated using voice recognition software and may contain errors or omissions. Dr. García has read this note and agrees with this plan of care. [facility] Disclaimer: The information contained in this section may have been updated after the patient was seen, as this information can be updated by other users. Medical History CAD (coronary artery disease) GERD (gastroesophageal reflux disease) HLD (hyperlipidemia) HTN (hypertension) Hypothyroidism Myocardial infarct Surgical History H/O colonoscopy H/O dilation and curettage Family History Other Arthritis Cancer Hypertension Social History (Updated 04/12/23 @ 09:12 by Marleny Breen RN) Smoking Status: Never smoker alcohol intake: never substance use type: denies use current occupational status: employed Travel in the last 8 weeks: None housing: house
[2023-04-29 10:59] VITALS: BP 144/78; PULSE 67; RESP 18; O2SAT 96; BMI 30.3
== END ==
LOC: SC.PAIN 10:23
PROVIDERS: PCP Internal Medicine; Visit Provider Nurse Practitioner Family
DX: M50.123 Cervical disc disorder at C6-C7 level with radiculopathy (principal); G43.909 Migraine, unspecified, not intractable, without status migrainosus; M54.81 Occipital neuralgia
CPT/HCPCS: 99212; G0463

== ENCOUNTER 2023-06-14 09:45 | Day surgery (SDC) | payer BC, SELFPAY ==
[2023-06-14 09:57] VITALS: BP 129/72; PULSE 68; RESP 16; TEMP 36.3; O2SAT 95; BMI 29.9
[2023-06-14 10:15] VITALS: BP 141/73; PULSE 65; RESP 18; O2SAT 98
[2023-06-14] MEDS: methylPREDNISolone ACETATE 80MG/ML VIAL 80 MG (10:15)
[2023-06-14 10:16] VITALS: BP 141/73; PULSE 65; RESP 18; O2SAT 98
[2023-06-14 10:20] VITALS: BP 128/65; PULSE 61; RESP 18; O2SAT 95
[2023-06-14] MEDS: IOPAMIDOL-200 (41%);10ML VIAL 10 ML IV (10:22)
--- NOTE | 2023-06-14 10:27 | P.PCN_ITS ---
Procedure Date: 06/14/23 Time: 10:20 Anesthesiologist:: Wili Aguilar CRNA Complications:: None Pre-procedure Diagnosis:: Degenerative disc cervical spine multilevels. Cervical radiculopathy. Post-procedure Diagnosis:: Same. Indications for Procedure:: Patient is a very pleasant 62-year-old female comes our clinic today for cervical epidural steroid injection. Patient has cervical neck pain she describes as constant, dull, aching. She also reports bilateral shoulder and arm radicular symptoms at times. She rates her pain 7/10. Procedure Details:: Procedure:Cervical epidural steroid injection Informed consent was obtained and the risks and benefits of the procedure were explained to the patient. The patient was taken to the procedure room and noninvasive monitors placed, including noninvasive blood pressure cuff and pulse oximeter. The neck was prepped using Chloraprep as a cleansing solution. The C6- C7 interspace was viewed using fluroscopy. The skin and subcutaneous tissues were anesthetized using lidocaine 1.5% and a 25-gauge needle. After this an 18- gauge Touhy epidural needle was placed into the C6-C7 interspace under fluroscopy guidance and advanced using loss of resistance to air until the epidural space was encountered. After confirmation of needle placement in the epidural space using contrast dye, a solution containing normal saline, 2 mL and Depo-Medrol 80 mg was incrementally injected into the cervical epidural space.~ The patient tolerated the procedure well with no complications. The patient was observed in the Pain Clinic and then discharged home neurologically intact. Plan and Disposition:: Patient was discharged without incident.
--- NOTE | 2023-06-14 10:29 | P.PCN_ITS ---
Procedure Date: 06/14/23 Time: 10:20 Anesthesiologist:: Wili Aguilar CRNA Complications:: None Pre-procedure Diagnosis:: Degenerative disc cervical spine multilevels. Cervical radiculopathy. Post-procedure Diagnosis:: Same. Indications for Procedure:: Patient is a 62-year-old female comes our clinic today for cervical epidural steroid injection. Patient reports cervical neck pain with bilateral arm radicular symptoms at times. She rates her pain 7/10. Patient describes the cervical neck pain as constant, dull, aching. Procedure Details:: Procedure:Cervical epidural steroid injection Informed consent was obtained and the risks and benefits of the procedure were explained to the patient. The patient was taken to the procedure room and noninvasive monitors placed, including noninvasive blood pressure cuff and pulse oximeter. The neck was prepped using Chloraprep as a cleansing solution. The C6- C7 interspace was viewed using fluroscopy. The skin and subcutaneous tissues were anesthetized using lidocaine 1.5% and a 25-gauge needle. After this an 18- gauge Touhy epidural needle was placed into the C6-C7 interspace under fluroscopy guidance and advanced using loss of resistance to air until the epidural space was encountered. After confirmation of needle placement in the epidural space using contrast dye, a solution containing normal saline, 2 mL and Depo-Medrol 80 mg was incrementally injected into the cervical epidural space.~ The patient tolerated the procedure well with no complications. The patient was observed in the Pain Clinic and then discharged home neurologically intact. Plan and Disposition:: Patient was discharged without incident.
== END 2023-06-14 10:20 | disposition home or self-care (01) ==
PROVIDERS: PCP Internal Medicine; Visit Provider Nurse Anesthetist, Certified Registered
DX: M50.123 Cervical disc disorder at C6-C7 level with radiculopathy (principal)
CPT/HCPCS: 62321; J1040; Q9966

== ENCOUNTER 2023-06-29 09:37 | Outpatient (POV) | payer BC, SELFPAY ==
[2023-06-29 09:43] VITALS: BP 114/76; PULSE 67; RESP 20; BMI 29.6
--- NOTE | 2023-06-29 09:47 | A.OFFVIS_ITS ---
[facility] Pain Management SOAP Note Subjective:: Patient is a pleasant 62-year-old female who presents today for follow-up of cervical epidural steroid injection C6-C7 on 06/14/2023. We are currently treating the patient for degenerative disc disease of cervical spine with cervical radiculopathy symptoms, occipital neuralgia, headaches, migraines. Today she rates her pain a 3 out of 10. She denies any new trauma or injury. She does state that she has had significant improvement of at least 80% following this injection. She states that her hands are not falling asleep at night any longer while she is sleeping. She states she has also had significant relief in her right shoulder and feels overall more functional. Patient is prescribed gabapentin from an outside provider. Her Sloan has been reviewed and is appropriate. Review of Systems: General: No recent weight changes, no fever, no sleep disturbances Respiratory: No cough, no shortness of air, no recurring pulmonary infections Cardiovascular/peripheral vascular: No chest pain, no palpitations, no edema, no shortness of breath Gastrointestinal: No new onset incontinence, normal bowel movements reported Genitourinary: No new onset incontinence Musculoskeletal: Neck pain Psychiatric: [Normal mood/affect] Neurological: [Denies weakness in extremities], [denies balance issues] Objective:: Physical Exam: General: Alert and oriented x3, no acute distress, pleasant and cooperative Lungs: Respirations even and unlabored, symmetrical chest expansion Eyes: PERRL Musculoskeletal: Flexion and extension of cervical [spine] somewhat guarded secondary to pain, [antalgic gait noted] Neurological: Speech clear, no gross sensory deficit Assessment:: Degenerative disc disease of cervical spine with cervical radiculopathy symptoms, occipital neuralgia, headaches, migraines Plan:: Patient has had significant improvement following her cervical epidural and does not require any injection therapy at this time. I will order the patient a compounded cream. Patient will return to clinic in 1 month for reevaluation of symptoms and plan of care. Patient has been instructed to contact the clinic with any concerns before the n ext appointment. Dr. García has reviewed this note and agrees with this plan of care. This note was dictated using voice recognition software and make contain errors or omissions. [facility] Disclaimer: The information contained in this section may have been updated after the patient was seen, as this information can be updated by other users. Medical History HTN (hypertension) GERD (gastroesophageal reflux disease) Hypothyroidism CAD (coronary artery disease) HLD (hyperlipidemia) Myocardial infarct Surgical History H/O colonoscopy H/O dilation and curettage Family History Other Arthritis Cancer Hypertension Social History Smoking Status: Never smoker alcohol intake: never substance use type: denies use current occupational status: employed Travel in the last 8 weeks: None housing: house
== END 2023-06-29 23:59 ==
LOC: SC.PAIN 09:38
PROVIDERS: PCP Internal Medicine; Visit Provider Nurse Practitioner Family
DX: M50.123 Cervical disc disorder at C6-C7 level with radiculopathy (principal); M54.81 Occipital neuralgia; G43.909 Migraine, unspecified, not intractable, without status migrainosus
CPT/HCPCS: 99212; G0463

== ENCOUNTER 2023-07-27 09:19 | Outpatient (POV) | payer BC, SELFPAY ==
[2023-07-27 09:42] VITALS: BP 109/66; PULSE 73; RESP 18; O2SAT 98; BMI 29.4
--- NOTE | 2023-07-27 09:43 | A.OFFVIS_ITS ---
[facility] Pain Management SOAP Note Subjective:: Patient is a pleasant 62-year-old female who presents today for follow-up. Today she rates her pain a 5 out of 10. She states that the last 2 morning she did wake up with her left hand to sleep. She does feel like her neck symptoms are slowly starting to increase back. Patient did have a cervical epidural C6- C7 back in May that did provide 80% improvement. She does feel like it is still helping somewhat but today she states that her right shoulder is causing a lot more pain. She states it is a constant achy, tooth ache sensation that is worse with increased activity. Patient denies any specific injury to this joint. She states that back in 1998 she did have to have shoulder surgery to shave down her acromion due to impingement. Patient states that she really has not had too much problems with it from that time on however it is slowly started to bother her on a more regular basis. She does state that the pain interferes with her ability perform activities of daily living such as cooking and cleaning. She is interested in any help we may be able to provide. She does state that the compounded cream we prescribed did significantly help. Her Sloan has been reviewed and is appropriate. Review of Systems: General: No recent weight changes, no fever, no sleep disturbances Respiratory: No cough, no shortness of air, no recurring pulmonary infections Cardiovascular/peripheral vascular: No chest pain, no palpitations, no edema, no shortness of breath Gastrointestinal: No new onset incontinence, normal bowel movements reported Genitourinary: No new onset incontinence Musculoskeletal: Right shoulder pain Psychiatric: [Normal mood/affect] Neurological: [Denies weakness in extremities], [denies balance issues] Objective:: Physical Exam: General: Alert and oriented x3, no acute distress, pleasant and cooperative Lungs: Respirations even and unlabored, symmetrical chest expansion Eyes: PERRL Musculoskeletal: Flexion and extension of right shoulder somewhat guarded secondary to pain, [antalgic gait noted] Neurological: Speech clear, no gross sensory deficit Assessment:: Degenerative disc disease of cervical spine with cervical radiculopathy symptoms, occipital neuralgia, headaches, migraines, right shoulder pain Plan:: Patient is experiencing worsening pain in her right shoulder with limited range of motion. I have discussed with the patient that most likely her symptoms are related to arthritis and that she may benefit from an intra-articular shoulder injection. Risk and benefits were discussed with the patient and she would like to proceed forward with this plan of care. Patient is scheduled to go on a trip to [place] in [place] coming up on September 12. I have also discussed with her in future that it may be beneficial to repeat her cervical epidural before she leaves on this trip. Patient is agreeable to this plan of care. We will follow-up with that at future visits. Patient will be scheduled for a right shoulder intra-articular injection. Patient has been instructed to contact the clinic with any concerns before the next appointment. Dr. García has reviewed this note and agrees with this plan of care. This note was dictated using voice recognition software and make contain errors or omissions. [facility] Disclaimer: The information contained in this section may have been updated after the patient was seen, as this information can be updated by other users. Medical History HTN (hypertension) GERD (gastroesophageal reflux disease) Hypothyroidism CAD (coronary artery disease) HLD (hyperlipidemia) Myocardial infarct Surgical History H/O colonoscopy H/O dilation and curettage Family History Other Arthritis Cancer Hypertension Social History Smoking Status: Never smoker alcohol intake: never substance use type: denies use current occupational status: employed Travel in the last 8 weeks: None housing: house
== END 2023-07-27 23:59 ==
LOC: SC.PAIN 09:20
PROVIDERS: PCP Internal Medicine; Visit Provider Nurse Practitioner Family
DX: M50.123 Cervical disc disorder at C6-C7 level with radiculopathy (principal); M54.81 Occipital neuralgia; G43.909 Migraine, unspecified, not intractable, without status migrainosus; M25.511 Pain in right shoulder
CPT/HCPCS: 99212; G0463

== ENCOUNTER 2023-08-23 07:48 | Day surgery (SDC) | payer BC, SELFPAY ==
[2023-08-23 08:17] VITALS: BP 129/71; PULSE 66; RESP 16; TEMP 36.4; O2SAT 92; BMI 29.4
[2023-08-23] MEDS: BUPIVACAINE 0.25% 10ML INJ 25 MG IJ (08:51)
[2023-08-23] MEDS: LIDOCAINE 1% 5ML PF VIAL 5 ML (08:51)
[2023-08-23] MEDS: methylPREDNISolone ACETATE 80MG/ML VIAL 80 MG (08:51)
[2023-08-23 08:52] VITALS: BP 138/93; PULSE 64; RESP 18; O2SAT 99
[2023-08-23 08:53] VITALS: BP 138/93; PULSE 64; RESP 18; O2SAT 99
[2023-08-23 08:56] VITALS: BP 121/72; PULSE 67; RESP 18; O2SAT 92
--- NOTE | 2023-08-23 08:58 | P.PCN_ITS ---
Procedure Date: 08/23/23 Time: 08:40 Anesthesiologist:: Wili Aguilar CRNA Complications:: None Pre-procedure Diagnosis:: DJD right shoulder. Status post right rotator cuff repair. Chronic right shoulder pain Post-procedure Diagnosis:: Same. Indications for Procedure:: Patient is a very pleasant 62-year-old female comes our clinic today for intra- articular right shoulder injection. Patient reports right shoulder pain that is constant, dull, aching. She is status post right shoulder rotator cuff repair several years ago. However, continues with right shoulder pain. Patient has 5/5 strength in the right arm. However, limited range of motion secondary to pain. Procedure Details:: Procedure Details: Right shoulder intra-articular injection Informed consent was obtained risk and benefits of the procedure were explained to the patient. Patient was taken to the procedure room. The right shoulder was prepped using ChloraPrep. A 25-gauge needle was used first anteriorly, laterally, and then posteriorly to inject 10 mL bupivacaine 0.25% and Depo- Medrol 40 mg. Patient tolerated procedure well with no complications. Plan and Disposition: Plan and Disposition:: Patient was discharged without incident.
--- NOTE | 2023-08-23 09:02 | P.PCN_ITS ---
Procedure Date: 08/23/23 Time: 08:34 Anesthesiologist:: Wili Aguilar CRNA Complications:: None Pre-procedure Diagnosis:: DJD right shoulder. Chronic right shoulder pain. Status post right shoulder rotator cuff repair 1998. Post-procedure Diagnosis:: Same. Indications for Procedure:: Patient presents for right intra-articular shoulder injection today. She reports right shoulder pain is constant, dull, aching. She has 5/5 strength of the right arm. However, limited range of motion secondary to shoulder pain. Procedure Details:: Procedure Details: Right shoulder intra-articular injection Informed consent was obtained risk and benefits of the procedure were explained to the patient. Patient was taken to the procedure room. The right shoulder was prepped using ChloraPrep. A 25-gauge needle was used first anteriorly, laterally, and then posteriorly to inject 10 mL bupivacaine 0.25% and Depo- Medrol 40 mg. Patient tolerated procedure well with no complications. Plan and Disposition:: Patient was discharged without incident.
== END 2023-08-23 08:56 | disposition home or self-care (01) ==
LOC: SC.PAINP 07:49
PROVIDERS: PCP Internal Medicine; Visit Provider Nurse Anesthetist, Certified Registered
DX: M19.011 Primary osteoarthritis, right shoulder (principal); M25.511 Pain in right shoulder; G89.29 Other chronic pain
CPT/HCPCS: 20610; J1010

== ENCOUNTER 2023-09-07 09:42 | Outpatient (POV) | payer BC, SELFPAY ==
[2023-09-07 09:43] VITALS: BP 120/75; PULSE 68; RESP 18; O2SAT 97; BMI 29.4
--- NOTE | 2023-09-07 09:58 | EXP.PAIN.SOA ---
[facility] Pain Management SOAP Note Subjective:: Patient is a pleasant 62-year-old female who presents today for follow-up of right shoulder intra articular injection on 08/23/2023. We are currently treating the patient for degenerative disc disease of cervical spine with cervical radiculopathy symptoms, occipital neuralgia, headaches, migraines, shoulder pain. Today she rates her pain a 7 out of 10. Patient states that she has had 75 to 80% improvement of overall shoulder pain. She does state that that tooth ache sensation in her bicep has completely resolved. She does still have pain in the joint itself. She does state however today's pain is more related to her neck with radiating symptoms of numbness and tingling into her upper extremities. This is an aching, stiffness. Patient does state that her neck pain continues to interfere with her ability perform activities of daily living such as cooking and cleaning. She does state that she is scheduled to go to [facility] and will not return until September 25 however she would like to see about getting an injection for worsening neck pain. Patient is currently managed with gabapentin 100 mg daily from her primary care provider and compounded cream from our office. Her Sloan has been reviewed and is appropriate. Review of Systems: General: No recent weight changes, no fever, no sleep disturbances Respiratory: No cough, no shortness of air, no recurring pulmonary infections Cardiovascular/peripheral vascular: No chest pain, no palpitations, no edema, no shortness of breath Gastrointestinal: No new onset incontinence, normal bowel movements reported Genitourinary: No new onset incontinence Musculoskeletal: Neck pain, arm numbness tingling Psychiatric: [Normal mood/affect] Neurological: [Denies weakness in extremities], [denies balance issues] Objective:: Physical Exam: General: Alert and oriented x3, no acute distress, pleasant and cooperative Lungs: Respirations even and unlabored, symmetrical chest expansion Eyes: PERRL Musculoskeletal: Flexion and extension of cervical [spine] somewhat guarded secondary to pain, [antalgic gait noted] positive Spurling's test Neurological: Speech clear, no gross sensory deficit Assessment:: degenerative disc disease of cervical spine with cervical radiculopathy symptoms, occipital neuralgia, headaches, migraines, shoulder pain Plan:: Patient is experiencing worsening pain in her neck with radiating symptoms into her upper extremities. Patient did have limited range of motion of her cervical spine with a positive Spurling's test. Patient has previously had cervical epidurals that provided upwards of 70% relief or more lasting several months. I have discussed with patient that she may benefit from a repeat cervical epidural steroid injection. Risk and benefits were discussed with patient and she would like to proceed forward with this plan of care. Patient has tried and failed conservative treatment including continued at home stretching and exercise between injections. We will schedule the patient for a BLANCA C6-C7 under fluoroscopy. Patient has been instructed to contact the clinic with any concerns before the next appointment. Dr. García has reviewed this note and agrees with this plan of care. This note was dictated using voice recognition software and make contain errors or omissions. [facility] Disclaimer: The information contained in this section may have been updated after the patient was seen, as this information can be updated by other users. Medical History HTN (hypertension) GERD (gastroesophageal reflux disease) Hypothyroidism CAD (coronary artery disease) HLD (hyperlipidemia) Myocardial infarct Surgical History H/O colonoscopy H/O dilation and curettage Family History Other Arthritis Cancer Hypertension Social History Smoking Status: Never smoker alcohol intake: never substance use type: denies use current occupational status: employed Travel in the last 8 weeks: None housing: house
== END 2023-09-07 23:59 | disposition home or self-care (01) ==
LOC: SC.PAIN 09:42
PROVIDERS: PCP Internal Medicine; Visit Provider Nurse Practitioner Family
DX: M50.123 Cervical disc disorder at C6-C7 level with radiculopathy (principal); M54.81 Occipital neuralgia; G43.909 Migraine, unspecified, not intractable, without status migrainosus; M25.519 Pain in unspecified shoulder
CPT/HCPCS: 99212; G0463

== ENCOUNTER 2023-10-04 09:53 | Day surgery (SDC) | payer BC, SELFPAY ==
[2023-10-04 10:07] VITALS: BP 131/88; PULSE 66; RESP 18; O2SAT 90; BMI 30.2
[2023-10-04 10:28] VITALS: BP 128/66; PULSE 68; RESP 18; O2SAT 97
[2023-10-04] MEDS: methylPREDNISolone ACETATE 80MG/ML VIAL 80 MG (10:28)
[2023-10-04 10:29] VITALS: BP 128/66; PULSE 74; RESP 18; O2SAT 97
[2023-10-04] MEDS: IOPAMIDOL-200 (41%);10ML VIAL 10 ML IV (10:30)
--- NOTE | 2023-10-04 10:31 | P.PCN_ITS ---
Procedure Date: 10/04/23 Time: 10:20 Anesthesiologist:: Wili Aguilar CRNA Complications:: None Pre-procedure Diagnosis:: Degenerative disc cervical spine multilevels. Cervical radiculopathy. Cervical spondylosis. Post-procedure Diagnosis:: Same. Indications for Procedure:: Patient is a very pleasant 62-year-old female that comes our clinic today for repeat cervical epidural steroid injection. Patient responded very well to this injection in the past. She describes posterior cervical neck pain as well as bilateral arm radicular symptoms when symptoms are at their peak. She rates her pain today 8/10. Procedure Details:: Procedure:Cervical epidural steroid injection Informed consent was obtained and the risks and benefits of the procedure were explained to the patient. The patient was taken to the procedure room and noninvasive monitors placed, including noninvasive blood pressure cuff and pulse oximeter. The neck was prepped using Chloraprep as a cleansing solution. The C6- C7 interspace was viewed using fluroscopy. The skin and subcutaneous tissues were anesthetized using lidocaine 1.5% and a 25-gauge needle. After this an 18- gauge Touhy epidural needle was placed into the C6-C7 interspace under fluroscopy guidance and advanced using loss of resistance to air until the epidural space was encountered. After confirmation of needle placement in the epidural space using contrast dye, a solution containing normal saline, 2 mL and Depo-Medrol 80 mg was incrementally injected into the cervical epidural space.~ The patient tolerated the procedure well with no complications. The patient was observed in the Pain Clinic and then discharged home neurologically intact. Plan and Disposition:: Patient was discharged without incident.
[2023-10-04 10:33] VITALS: BP 143/71; PULSE 64; RESP 16; O2SAT 98
== END 2023-10-04 10:34 | disposition home or self-care (01) ==
PROVIDERS: PCP Internal Medicine; Visit Provider Nurse Anesthetist, Certified Registered
DX: M50.123 Cervical disc disorder at C6-C7 level with radiculopathy (principal); M47.22 Other spondylosis with radiculopathy, cervical region
CPT/HCPCS: 62321; J1010; Q9966

== ENCOUNTER 2023-10-20 08:19 | Outpatient (POV) | payer BC, SELFPAY ==
--- NOTE | 2023-10-20 08:35 | A.OFFVIS_ITS ---
[facility] Disclaimer: The information contained in this section may have been updated after the patient was seen, as this information can be updated by other users. Medical History HTN (hypertension) GERD (gastroesophageal reflux disease) Hypothyroidism CAD (coronary artery disease) HLD (hyperlipidemia) Myocardial infarct Surgical History H/O colonoscopy H/O dilation and curettage Family History Other Arthritis Cancer Hypertension Social History Smoking Status: Never smoker alcohol intake: never substance use type: denies use current occupational status: employed Travel in the last 8 weeks: None housing: house PM Subjective & Objective Subjective Subjective:: Patient is a pleasant 62-year-old female who presents today for follow-up cervical epidural steroid injection C6-C7 on 10/04/2023. Today she rates her pain a 3 out of 10. Patient denies any new trauma or injury. She does state that she has had at least 75% improvement following this injection and feels like it still helping. Patient does states she occasionally has some stiffness and soreness in her shoulder however it is much more manageable and not as severe. Patient does state that she is no longer taking the gabapentin that she had been previously doing with her PCP. Patient does state that she still uses her compounded cream from time to time from our office however with the decreased pain she is really not needed this much. Her Sloan has been reviewed and is appropriate. Review of Systems: General: No recent weight changes, no fever, no sleep disturbances Respiratory: No cough, no shortness of air, no recurring pulmonary infections Cardiovascular/peripheral vascular: No chest pain, no palpitations, no edema, no shortness of breath Gastrointestinal: No new onset incontinence, normal bowel movements reported Genitourinary: No new onset incontinence Musculoskeletal: Neck pain Psychiatric: [Normal mood/affect] Neurological: [Denies weakness in extremities], [denies balance issues] Pain at rest (0-10 scale): 3 Objective Objective:: Physical Exam: General: Alert and oriented x3, no acute distress, pleasant and cooperative Lungs: Respirations even and unlabored, symmetrical chest expansion Eyes: PERRL Musculoskeletal: Flexion and extension of cervical [spine] somewhat guarded secondary to pain, [antalgic gait noted] Neurological: Speech clear, no gross sensory deficit Has patient had previous pain injection?: Yes Percent improvement in pain since last injection: 75 Conservative treatment options previously tried: Home exercise plan Length of treatment: >6 weeks Meds Home Medications and Allergies Home Medications Medication Instructions Recorded Confirmed Type aspirin 81 mg tablet,delayed 81 mg PO DAILY Blood Thinner 12/05/17 10/04/23 History release (Adult Low Dose Aspirin) bisoprolol fumarate 5 mg tablet 5 mg PO DAILY BLOOD PRESSURE 90 12/05/17 10/04/23 History days ##45 cholecalciferol (vitamin D3) 25 1,000 unit PO DAILY SUPPLIMENT 12/05/17 10/04/23 History mcg (1,000 unit) capsule coenzyme Q10 10 mg capsule (Co 10 mg PO TID HEART HEALTH 12/05/17 10/04/23 History Q-10) famotidine 20 mg tablet 20 mg PO DAILY GERD 30 days ##30 12/05/17 10/04/23 History levothyroxine 50 mcg tablet 50 mcg PO DAILY THYROID 90 days 12/05/17 10/04/23 History ##90 rosuvastatin 10 mg tablet (Crestor) 10 mg PO .3 times weekly 12/05/17 10/04/23 History Cholesterol New Prescriptions to Start Prescriptions: Allergies Allergy/AdvReac Type Severity Reaction Status Date / Time Penicillins [PENICILLINS] Allergy Intermediate I-ITCHING Verified 10/04/23 10:08 pseudoephedrine Allergy Intermediate I-ITCHING Verified 10/04/23 10:08 [From SUDAFED] clindamycin AdvReac Intermediate Irritation Verified 10/04/23 10:08 of the Esophagus Assessment and Plan *Assessment and plan (1) Degenerative disc disease, cervical: Status: Acute Category: Medical Code(s): M50.30 - Other cervical disc degeneration, unspecified cervical region (2) Cervical radiculopathy: Status: Acute Category: Medical Code(s): M54.12 - Radiculopathy, cervical region (3) Right shoulder pain: Status: Acute Qualifiers: Chronicity: chronic Qualified Code(s): M25.511 - Pain in right marilou ulder; G89.29 - Other chronic pain Category: Medical Code(s): M25.511 - Pain in right shoulder Plan Patient has had significant improvement following her cervical epidural and does not require any additional injection therapy at this time. Patient will return to clinic in 2 months for reevaluation of symptoms and plan of care. Patient has been instructed to contact the clinic with any concerns before the next appointment. Dr. Gacría has reviewed this note and agrees with this plan of care. This note was dictated using voice recognition software and make contain errors or omissions.
[2023-10-20 08:42] VITALS: BP 107/53; PULSE 61; RESP 18; O2SAT 96; BMI 29.4
== END 2023-10-20 23:59 | disposition home or self-care (01) ==
LOC: SC.PAIN 08:19
PROVIDERS: PCP Internal Medicine; Visit Provider Nurse Practitioner Family
DX: G89.29 Other chronic pain (principal); M50.10 Cervical disc disorder with radiculopathy, unspecified cervical region
CPT/HCPCS: 99212; G0463

== ENCOUNTER 2023-12-19 10:07 | Outpatient (POV) | payer BC, SELFPAY ==
[2023-12-19 10:20] VITALS: BP 117/62; PULSE 81; RESP 18; O2SAT 96; BMI 29.6
--- NOTE | 2023-12-19 11:19 | A.OFFVIS_ITS ---
[facility] Disclaimer: The information contained in this section may have been updated after the patient was seen, as this information can be updated by other users. Medical History HTN (hypertension) GERD (gastroesophageal reflux disease) Hypothyroidism CAD (coronary artery disease) HLD (hyperlipidemia) Myocardial infarct Surgical History H/O colonoscopy H/O dilation and curettage Family History Other Arthritis Cancer Hypertension Social History Smoking Status: Never smoker alcohol intake: never substance use type: denies use current occupational status: employed Travel in the last 8 weeks: None housing: house PM Subjective & Objective Subjective Subjective:: Patient is a pleasant 62-year-old female who presents today for 2-month. We are currently treating the patient for degenerative disc disease of cervical spine with cervical radiculopathy symptoms, occipital neuralgia, headaches, migraines, shoulder pain. Today she rates her pain a 7 out of 10. She does state that she has been starting to have more frequent migraines about 2 to 3 days a week as well as worsening right arm pain. Patient does describe the pain in her neck with radiating symptoms of numbness and tingling into her upper extremities. This is an aching, stiffness. Patient does state that her neck pain continues to interfere with her ability perform activities of daily living such as cooking and cleaning. She does state that she feels like her last cervical epidural has officially worn off. This was done back in the beginning of September. Patient is interested in repeat injection due to how much improved function she did have with the injections. Patient is currently managed with gabapentin 100 mg daily from her primary care provider and compounded cream from our office. Her Sloan has been reviewed and is appropriate. Review of Systems: General: No recent weight changes, no fever, no sleep disturbances Respiratory: No cough, no shortness of air, no recurring pulmonary infections Cardiovascular/peripheral vascular: No chest pain, no palpitations, no edema, no shortness of breath Gastrointestinal: No new onset incontinence, normal bowel movements reported Genitourinary: No new onset incontinence Musculoskeletal: Neck pain, arm numbness tingling Psychiatric: [Normal mood/affect] Neurological: [Denies weakness in extremities], [denies balance issues] Pain at rest (0-10 scale): 7 Objective Objective:: Physical Exam: General: Alert and oriented x3, no acute distress, pleasant and cooperative Lungs: Respirations even and unlabored, symmetrical chest expansion Eyes: PERRL Musculoskeletal: Flexion and extension of cervical [spine] somewhat guarded secondary to pain, [antalgic gait noted] positive Spurling's test Neurological: Speech clear, no gross sensory deficit Has patient had previous pain injection?: No Conservative treatment options previously tried: Home exercise plan Length of treatment: Longer than 6 weeks Meds Home Medications and Allergies Home Medications ?Medication ?Instructions ?Recorded ?Confirmed ?Type aspirin 81 mg tablet,delayed 81 mg PO DAILY Blood Thinner 12/05/17 10/20/23 History release (Adult Low Dose Aspirin) cholecalciferol (vitamin D3) 25 1,000 unit PO DAILY SUPPLIMENT 12/05/17 10/20/23 History mcg (1,000 unit) capsule coenzyme Q10 10 mg capsule (Co 10 mg PO TID Discrete Sport 12/05/17 10/20/23 History Q-10) famotidine 20 mg tablet 20 mg PO DAILY GERD 30 days ##30 12/05/17 10/20/23 History rosuvastatin 10 mg tablet (Crestor) 10 mg PO .3 times weekly 12/05/17 10/20/23 History Cholesterol levothyroxine 50 mcg tablet See Rx Instructions .Route 11/07/23 Rx .COMPLEX #90 tabs zolmitriptan 5 mg tablet See Rx Instructions PO .COMPLEX 11/21/23 Rx #10 tabs bisoprolol fumarate 5 mg tablet See Rx Instructions .Route 12/07/23 Rx .COMPLEX #45 tabs New Prescriptions to Start Prescriptions: Allergies Allergy/AdvReac Type Severity Reaction Status Date / Time Penicillins [PENICILLINS] Allergy Intermediate I-ITCHING Verified 10/04/23 10:08 pseudoephedrine Allergy Intermediate I-ITCHING Verified 10/04/23 10:08 [From SUDAFED] clindamycin AdvReac Intermediate Irritation Verified 10/04/23 10:08 of the Esophagus Assessment and Plan *Assessment and plan (1) Cervical radiculopathy: Status: Acute Category: Medical Code(s): M54.12 - Radiculopathy, cervical region (2) Degenerative disc disease, cervical: Status: Acute Category: Medical Code(s): M50.30 - Other cervical disc degeneration, unspecified cervical region Plan Patient is experiencing worsening pain throughout her neck with radiating symptoms into her upper right extremity with numbness and tingling. Patient was counseled that she may benefit from repeat cervical epidural. Risk and benefits were discussed with patient and she would like to proceed forward with this plan of care. Patient had her last cervical epidural on October 03 that did provide 75% improvement and has lasted up until the last week. Patient has tried and failed conservative therapy including continued at home stretching exercise for longer than 6 weeks. Patient will be scheduled for a repeat BLANCA C6-C7 under fluoroscopy. Patient has been instructed to contact the clinic with any concerns before the next appointment. Dr. García has reviewed this note and agrees with this plan of care. This note was dictated using voice recognition software and make contain errors or omissions. All injections are used with Lidocaine or Bupivacaine and Depo Medrol.
== END 2023-12-19 23:59 | disposition home or self-care (01) ==
LOC: SC.PAIN 10:07
PROVIDERS: PCP Internal Medicine; Visit Provider Nurse Practitioner Family
DX: M50.10 Cervical disc disorder with radiculopathy, unspecified cervical region (principal); Z73.89 Other problems related to life management difficulty
CPT/HCPCS: 99212; G0463

== ENCOUNTER 2024-01-10 13:45 | Day surgery (SDC) | payer BC, SELFPAY ==
[2024-01-10 14:04] VITALS: BP 111/61; PULSE 66; RESP 16; TEMP 36.5; O2SAT 97; BMI 30.7
[2024-01-10] MEDS: IOPAMIDOL-200 (41%);10ML VIAL 10 ML IV (14:08)
[2024-01-10] MEDS: methylPREDNISolone ACETATE 80MG/ML VIAL 80 MG (14:15)
--- NOTE | 2024-01-10 14:17 | P.PCN_ITS ---
Procedure Date: 01/10/24 Time: 14:00 Anesthesiologist:: Wili Aguilar CRNA Complications:: None Pre-procedure Diagnosis:: Degenerative disc cervical spine multilevels. Cervical radiculopathy. Post-procedure Diagnosis:: Same. Indications for Procedure:: Patient is a very pleasant 63-year-old female comes our clinic today for repeat cervical epidural steroid injection. Patient reports significant improvement in her overall posterior cervical neck pain as well as bilateral arm radicular symptoms with previous injections. She rates her pain today 6/10. Procedure Details:: Procedure:Cervical epidural steroid injection Informed consent was obtained and the risks and benefits of the procedure were explained to the patient. The patient was taken to the procedure room and noninvasive monitors placed, including noninvasive blood pressure cuff and pulse oximeter. The neck was prepped using Chloraprep as a cleansing solution. The C6- C7 interspace was viewed using fluroscopy. The skin and subcutaneous tissues were anesthetized using lidocaine 1.5% and a 25-gauge needle. After this an 18- gauge Touhy epidural needle was placed into the C6-C7 interspace under fluroscopy guidance and advanced using loss of resistance to air until the e pidural space was encountered. After confirmation of needle placement in the epidural space using contrast dye, a solution containing normal saline, 2 mL and Depo-Medrol 80 mg was incrementally injected into the cervical epidural space.~ The patient tolerated the procedure well with no complications. The patient was observed in the Pain Clinic and then discharged home neurologically intact. Plan and Disposition:: Patient was discharged without incident.
[2024-01-10 14:22] VITALS: BP 119/68; PULSE 65; RESP 18; O2SAT 98
== END 2024-01-10 14:22 | disposition home or self-care (01) ==
PROVIDERS: PCP Internal Medicine; Visit Provider Nurse Anesthetist, Certified Registered
DX: M50.30 Other cervical disc degeneration, unspecified cervical region (principal); M54.12 Radiculopathy, cervical region
CPT/HCPCS: 62321; J1010; Q9966

== ENCOUNTER 2024-02-09 10:05 | Outpatient (POV) | payer BC, SELFPAY ==
[2024-02-09 10:45] VITALS: BP 141/89; PULSE 81; RESP 14; O2SAT 96; BMI 31.1
--- NOTE | 2024-02-09 11:06 | A.OFFVIS_ITS ---
[facility] Disclaimer: The information contained in this section may have been updated after the patient was seen, as this information can be updated by other users. Medical History (Updated 02/09/24 @ 11:08 by Chio Whalen APRN) HTN (hypertension) GERD (gastroesophageal reflux disease) Hypothyroidism CAD (coronary artery disease) HLD (hyperlipidemia) Myocardial infarct Surgical History H/O colonoscopy H/O dilation and curettage Family History Other Arthritis Cancer Hypertension Social History Smoking Status: Never smoker alcohol intake: never substance use type: denies use current occupational status: other Travel in the last 8 weeks: None housing: house PM Subjective & Objective Subjective Subjective:: Patient is a pleasant 63-year-old female who presents today for follow-up of cervical epidural steroid injection C6-C7 on 01/10/2024. Today she rates her pain a 3 out of 10 in her overall neck. She states that she has had at least 90% improvement and feels like it still helping. Patient states that she did end up going under the weather with COVID and was having a rale sensation along her left arm however today it is doing well. Patient states she is unsure if it just had to do with the COVID or just her chronic neck symptoms. Patient does also make mention that she read her last procedure note and that her pain was actually a 9 out of 10 for the day of the injection. Patient does also make mention that she has been experiencing lot of migraines over the last month. She states that these all start in the back of her head patient states that she has a lot of pressure and pain in this location. Patient is currently managed with gabapentin from her PCP and compounded cream from our office. She denies any side effects from this. Her Sloan has been reviewed and is appropriate. Review of Systems: General: No recent weight changes, no fever, no sleep disturbances Respiratory: No cough, no shortness of air, no recurring pulmonary infections Cardiovascular/peripheral vascular: No chest pain, no palpitations, no edema, no shortness of breath Gastrointestinal: No new onset incontinence, normal bowel movements reported Genitourinary: No new onset incontinence Musculoskeletal: Migraine, occipital pain Psychiatric: [Normal mood/affect] Neurological: [Denies weakness in extremities], [denies balance issues] Pain at rest (0-10 scale): 3 Objective Objective:: Physical Exam: General: Alert and oriented x3, no acute distress, pleasant and cooperative Lungs: Respirations even and unlabored, symmetrical chest expansion Eyes: PERRL Musculoskeletal: Flexion and extension of cervical [spine] somewhat guarded secondary to pain Neurological: Speech clear, no gross sensory deficit Has patient had previous pain injection?: Yes Percent improvement in pain since last injection: 90% Conservative treatment options previously tried: Home exercise plan Length of treatment: Longer than 6 weeks Meds Home Medications and Allergies Home Medications ?Medication ?Instructions ?Recorded ?Confirmed ?Type aspirin 81 mg tablet,delayed 81 mg PO DAILY Blood Thinner 12/05/17 02/09/24 History release (Adult Low Dose Aspirin) cholecalciferol (vitamin D3) 25 1,000 unit PO DAILY SUPPLIMENT 12/05/17 02/09/24 History mcg (1,000 unit) capsule coenzyme Q10 10 mg capsule (Co 10 mg PO TID [facility] 12/05/17 02/09/24 History Q-10) famotidine 20 mg tablet 20 mg PO DAILY GERD 30 days ##30 12/05/17 02/09/24 History rosuvastatin 10 mg tablet (Crestor) 10 mg PO .3 times weekly 12/05/17 02/09/24 History Cholesterol levothyroxine 50 mcg tablet See Rx Instructions .Route 11/07/23 02/09/24 Rx .COMPLEX #90 tabs zolmitriptan 5 mg tablet See Rx Instructions PO .COMPLEX 11/21/23 02/09/24 Rx #10 tabs bisoprolol fumarate 5 mg tablet See Rx Instructions .Route 12/07/23 02/09/24 Rx .COMPLEX #45 tabs New Prescriptions to Start Prescriptions: Allergies Allergy/AdvReac Type Severity Reaction Status Date / Time Penicillins [PENICILLINS] Allergy Intermediate I-ITCHING Verified 01/10/24 14:05 pseudoephedrine Allergy Intermediate I-ITCHING Verified 01/10/24 14:05 [From SUDAFED] clindamycin AdvReac Intermediate Irritation Verified 01/10/24 14:05 of the Esophagus Assessment and Plan *Assessment and plan (1) Bilateral occipital neuralgia: Status: Acute Category: Medical Code(s): M54.81 - Occipital neuralgia Plan Patient has had significant improvement following her cervical epidural however she is experiencing worsening symptoms of occipital neuralgia bilaterally. I did discuss with the patient that I do believe she would get improvement of her overall pain and migraines with bilateral occipital nerve blocks. Risk and benefits were discussed with patient and she would like to proceed forward with this plan of care. Patient has had these injections in the past and stated she had more than 50% relief with these. Patient would like to proceed forward with the nerve blocks. Patient has continued at home exercising and stretching for longer than 6 weeks with no additional relief. Patient will be scheduled for bilateral occipital nerve blocks. Patient has been instructed to contact the clinic with any concerns before the next appointment. Dr. García has reviewed this note and agrees with this plan of care. This note was dictated using voice recognition software and make contain errors or omissions. All injections are used with Lidocaine or Bupivacaine and Depo Medrol.
== END 2024-02-09 23:59 | disposition home or self-care (01) ==
LOC: SC.PAIN 10:05
PROVIDERS: PCP Internal Medicine; Visit Provider Nurse Practitioner Family
DX: M54.81 Occipital neuralgia (principal); I25.10 Atherosclerotic heart disease of native coronary artery without angina pectoris; I10 Essential (primary) hypertension
CPT/HCPCS: 99212; G0463

== ENCOUNTER 2024-03-12 14:42 | Outpatient (POV) | payer BC, SELFPAY ==
--- NOTE | 2024-03-12 15:10 | A.OFFVIS_ITS ---
[facility] Disclaimer: The information contained in this section may have been updated after the patient was seen, as this information can be updated by other users. Medical History (Updated 02/09/24 @ 11:08 by Chio Whalen APRN) HTN (hypertension) GERD (gastroesophageal reflux disease) Hypothyroidism CAD (coronary artery disease) HLD (hyperlipidemia) Myocardial infarct Surgical History H/O colonoscopy H/O dilation and curettage Family History Other Arthritis Cancer Hypertension Social History Smoking Status: Never smoker alcohol intake: never substance use type: denies use current occupational status: other Travel in the last 8 weeks: None housing: house PM Subjective & Objective Subjective Subjective:: Patient is a pleasant 63-year-old female who presents today for insurance denial of occipital nerve blocks. Today she rates her pain a 6 out of 10. Patient denies any new trauma or injury. She does states she continues to have significant pain throughout her neck with numbness and tingling into her upper extremities. She states she has been having migraines for the last 4 days and headaches daily. Patient does state that she has had more on her plate with her dad having cancer surgery recently. Patient does feel like this is playing a role in some of her worsening pain symptoms. Patient did previously have her last cervical epidural back in the middle of December that did provide 90% improvement and has lasted up until the last week or 2. Patient states that overall her shoulder is still doing well. Patient is prescribed gabapentin from her PCP and compounded cream from our office. Patient does state that she is on migraine medication however they only cover 3 tablets/month. Patient does state the pain is interfering with her ability perform activities of daily living such as cooking and cleaning. Her Sloan has been reviewed and is appropriate. Review of Systems: General: No recent weight changes, no fever, no sleep disturbances Respiratory: No cough, no shortness of air, no recurring pulmonary infections Cardiovascular/peripheral vascular: No chest pain, no palpitations, no edema, no shortness of breath Gastrointestinal: No new onset incontinence, normal bowel movements reported Genitourinary: No new onset incontinence Musculoskeletal: Neck pain, bilateral arm numbness and tingling Psychiatric: [Normal mood/affect] Neurological: [Denies weakness in extremities], [denies balance issues] Pain at rest (0-10 scale): 6 Objective Objective:: Physical Exam: General: Alert and oriented x3, no acute distress, pleasant and cooperative Lungs: Respirations even and unlabored, symmetrical chest expansion Eyes: PERRL Musculoskeletal: Flexion and extension of cervical [spine] somewhat guarded secondary to pain, [antalgic gait noted] positive Spurling's test Neurological: Speech clear, no gross sensory deficit Has patient had previous pain injection?: No Conservative treatment options previously tried: Home exercise plan Length of treatment: Longer than 12 weeks Meds Home Medications and Allergies Home Medications ?Medication ?Instructions ?Recorded ?Confirmed ?Type aspirin 81 mg tablet,delayed 81 mg PO DAILY Blood Thinner 12/05/17 02/09/24 H istory release (Adult Low Dose Aspirin) cholecalciferol (vitamin D3) 25 1,000 unit PO DAILY SUPPLIMENT 12/05/17 02/09/24 History mcg (1,000 unit) capsule coenzyme Q10 10 mg capsule (Co 10 mg PO TID [place] 12/05/17 02/09/24 History Q-10) famotidine 20 mg tablet 20 mg PO DAILY GERD 30 days ##30 12/05/17 02/09/24 History rosuvastatin 10 mg tablet (Crestor) 10 mg PO .3 times weekly 12/05/17 02/09/24 History Cholesterol levothyroxine 50 mcg tablet See Rx Instructions .Route 11/07/23 02/09/24 Rx .COMPLEX #90 tabs zolmitriptan 5 mg tablet See Rx Instructions PO .COMPLEX 11/21/23 02/09/24 Rx #10 tabs bisoprolol fumarate 5 mg tablet See Rx Instructions .Route 12/07/23 02/09/24 Rx .COMPLEX #45 tabs escitalopram oxalate 10 mg tablet 10 mg PO DAILY #90 tabs 03/02/24 Rx New Prescriptions to Start Prescriptions: Allergies Allergy/AdvReac Type Severity Reaction Status Date / Time Penicillins (PENICILLINS) Allergy Intermediate I-ITCHING Verified 01/10/24 14:05 pseudoephedrine (From Allergy Intermediate I-ITCHING Verified 01/10/24 14:05 SUDAFED) clindamycin AdvReac Intermediate Irritation Verified 01/10/24 14:05 of the Esophagus Assessment and Plan *Assessment and plan (1) Cervical radiculopathy: Status: Acute Category: Medical Code(s): M54.12 - Radiculopathy, cervical region (2) Degenerative disc disease, cervical: Status: Acute Category: Medical Code(s): M50.30 - Other cervical disc degeneration, unspecified cervical region Plan I did review over with the patient due to her worsening pain in her neck with numbness and tingling into her upper extremities that she may benefit from a repeat cervical epidural steroid injection. Patient's last epidural was in December that did provide more than 90% improvement and has lasted up until the last week or 2. Patient was also counseled that I will send in a prescription of prednisone 20 mg twice daily and a 2-week supply of baclofen 5 mg 3 times da bonny. Patient has tried and failed conservative therapy including continued at home stretching exercise for longer than 12 weeks that has been physician guided. Patient will be scheduled for repeat cervical epidural steroid injection C6-C7 under fluoroscopy. I did also review over with the patient the denial reason for the occipital nerve block stating that it was investigational and not medically necessary. Patient has been instructed to contact the clinic with any concerns before the next appointment. Dr. García has reviewed this note and agrees with this plan of care. This note was dictated using voice recognition software and make contain errors or omissions. All injections are used with Lidocaine or Bupivacaine and Depo Medrol.
[2024-03-12 15:33] VITALS: BP 135/77; PULSE 75; RESP 14; O2SAT 97; BMI 29.2
== END 2024-03-12 23:59 | disposition home or self-care (01) ==
PROVIDERS: PCP Internal Medicine; Visit Provider Nurse Practitioner Family
DX: M50.10 Cervical disc disorder with radiculopathy, unspecified cervical region (principal); I25.10 Atherosclerotic heart disease of native coronary artery without angina pectoris; I10 Essential (primary) hypertension; Z73.89 Other problems related to life management difficulty
CPT/HCPCS: 99212; G0463

== ENCOUNTER 2024-06-21 14:33 | Outpatient (POV) | payer BC, SELFPAY ==
--- NOTE | 2024-06-21 15:05 | A.OFFVIS_ITS ---
[facility] Disclaimer: The information contained in this section may have been updated after the patient was seen, as this information can be updated by other users. Medical History (Updated 02/09/24 @ 11:08 by Chio Whalen APRN) HTN (hypertension) GERD (gastroesophageal reflux disease) Hypothyroidism CAD (coronary artery disease) HLD (hyperlipidemia) Myocardial infarct Surgical History H/O colonoscopy H/O dilation and curettage Family History Other Arthritis Cancer Hypertension Social History Smoking Status: Never smoker alcohol intake: never substance use type: denies use current occupational status: other Travel in the last 8 weeks: None housing: house Have you lived/traveled outside [place] in past 30 days?: No Contact w/someone who lives/traveled outside [place] past 30 days?: No Exposure to someone with infectious disease in past 14 days?: No Do you have a fever (greater than 100.4 F or 38 C)?: No Have you tested positive for COVID-19: No Exposed to someone with COVID-19 in past 14 days?: No Do you have a sore throat?: No Do you have a cough?: No Do you have any weakness?: No Do you have any diarrhea?: No Are you experiencing any unusual bleeding?: No Do you have any muscle aches/pain?: No Do you have any abdominal pain?: No Are you experiencing loss of taste or smell?: No PM Subjective & Objective Subjective Subjective:: Patient is a pleasant 63-year-old female who presents today for worsening pain. We are currently treating the patient for degenerative disc disease of cervical spine with cervical radiculopathy symptoms, occipital neuralgia, headaches, migraines, shoulder pain. Today she rates her pain a 6 out of 10. She does state that since April she has been having more severe pain in her neck with radiating symptoms to her upper right arm and limited range of motion. She also states she is going to having migraines 4-5 times per week. Patient does describe the pain in her neck with radiating symptoms of numbness and tingling into her upper extremities. This is an aching, stiffness with popping and crunching. Patient does state that her neck pain continues to interfere with her ability perform activities of daily living such as cooking and cleaning. She states that she did need to come in a whole lot sooner than today however she has been dealing with her dad who was working on chemo and radiation and is now living with her. She states that she has been on the back burner due to this. She states that she would very much like to get in for a repeat injection. Patient had her last cervical epidural in December that did provide 90% improvements and lasted longer than 3 months. Patient is currently managed with gabapentin 100 mg daily from her primary care provider and compounded cream from our office. Her Sloan has been reviewed and is appropriate. Review of Systems: General: No recent weight changes, no fever, no sleep disturbances Respiratory: No cough, no shortness of air, no recurring pulmonary infections Cardiovascular/peripheral vascular: No chest pain, no palpitations, no edema, no shortness of breath Gastrointestinal: No new onset incontinence, normal bowel movements reported Genitourinary: No new onset incontinence Musculoskeletal: Neck pain, arm numbness tingling Psychiatric: [Normal mood/affect] Neurological: [Denies weakness in extremities], [denies balance issues] Pain at rest (0-10 scale): 6 Objective Objective:: Physical Exam: General: Alert and oriented x3, no acute distress, pleasant and cooperative Lungs: Respirations even and unlabored, symmetrical chest expansion Eyes: PERRL Musculoskeletal: Flexion and extension of cervical [spine] somewhat guarded secondary to pain, [antalgic gait noted] positive Spurling's test Neurological: Speech clear, no gross sensory deficit Has patient had previous pain injection?: No Conservative treatment options previously tried: Home exercise plan Length of treatment: Longer than 12 weeks Meds Home Medications and Allergies Home Medications ?Medication ?Instructions ?Recorded ?Confirmed ?Type aspirin 81 mg tablet,delayed 81 mg PO DAILY Blood Thinner 12/05/17 03/12/24 History release (Adult Low Dose Aspirin) cholecalciferol (vitamin D3) 25 1,000 unit PO DAILY SUPPLIMENT 12/05/17 03/12/24 History mcg (1,000 unit) capsule coenzyme Q10 10 mg capsule (Co 10 mg PO TID [employer] 12/05/17 03/12/24 History Q-10) famotidine 20 mg tablet 20 mg PO DAILY GERD 30 days ##30 12/05/17 03/12/24 History rosuvastatin 10 mg tablet (Crestor) 10 mg PO .3 times weekly 12/05/17 03/12/24 History Cholesterol zolmitriptan 5 mg tablet See Rx Instructions PO .COMPLEX 11/21/23 03/12/24 Rx #10 tabs bisoprolol fumarate 5 mg tablet See Rx Instructions .Route 12/07/23 03/12/24 Rx .COMPLEX #45 tabs escitalopram oxalate 10 mg tablet 10 mg PO DAILY #90 tabs 03/02/24 03/12/24 Rx baclofen 5 mg tablet 5 mg PO TID #42 tabs 03/12/24 Rx prednisone 20 mg tablet 20 mg PO BID #10 tabs 03/12/24 Rx levothyroxine 50 mcg tablet See Rx Instructions .Route 05/07/24 Rx .COMPLEX #90 tabs New Prescriptions to Start Prescriptions: Allergies Allergy/AdvReac Type Severity Reaction Status Date / Time Penicillins (PENICILLINS) Allergy Intermediate I-ITCHING Verified 01/10/24 14:05 pseudoephedrine (From Allergy Intermediate I-ITCHING Verified 01/10/24 14:05 SUDAFED) clindamycin AdvReac Intermediate Irritation Verified 01/10/24 14:05 of the Esophagus Assessment and Plan *Assessment and plan (1) Bilateral occipital neuralgia: Status: Acute Category: Medical Code(s): M54.81 - Occipital neuralgia (2) Right shoulder pain: Status: Acute Qualifiers: Chronicity: chronic Qualified Code(s): M25.511 - Pain in right shoulder; G89.29 - Other chronic pain Category: Medical Code(s): M25.511 - Pain in right shoulder (3) Cervical radiculopathy: Status: Acute Category: Medical Code(s): M54.12 - Radiculopathy, cervical region (4) Degenerative disc disease, cervical: Status: Acute Category: Medical Code(s): M50.30 - Other cervical disc degeneration, unspecified cervical region Plan Patient is experiencing worsening pain in their neck with radiating tingling and burning sensations into their bilateral upper extremities. Patient did have limited range of motion of her cervical spine with a positive Spurling's test. I did discuss with the patient that I do believe they would benefit from a cervical epidural steroid injection. Risk and benefits were discussed with patient and they would like to proceed forward with this plan of care. Patient has tried and failed conservative therapy including oral medications, heat and ice, topicals, at home stretching exercise for longer than 12 weeks that was physician guided. Patient did previously have her last cervical epidural in December 2023 that did provide 90% relief and lasted longer than 3 months. Patient does have a chronic history of neck pain with radiating symptoms its go ne on longer than a year. Patient will be scheduled for a BLANCA C6 or C7 under fluoroscopy. Patient denies any blood thinners. Patient has been instructed to contact the clinic with any concerns before the next appointment. Dr. García has reviewed this note and agrees with this plan of care. This note was dictated using voice recognition software and make contain errors or omissions. All injections are used with Lidocaine, Bupivacaine and Depo Medrol. Occasionally urine drug screen is needed to verify patient's compliance with our office pain contract. This is ordered based off specific treatments related to chronic pain with the potential to abuse certain medications.
[2024-06-21 15:31] VITALS: BP 133/85; PULSE 66; RESP 16; O2SAT 98; BMI 30.7
== END 2024-06-21 23:59 | disposition home or self-care (01) ==
LOC: SC.PAIN 14:34
PROVIDERS: PCP Internal Medicine; Visit Provider Nurse Practitioner Family
DX: M54.81 Occipital neuralgia (principal); M25.511 Pain in right shoulder; G89.29 Other chronic pain; M50.10 Cervical disc disorder with radiculopathy, unspecified cervical region; Z73.89 Other problems related to life management difficulty
CPT/HCPCS: 99212; G0463

== ENCOUNTER 2024-07-17 10:10 | Day surgery (SDC) | payer BC, SELFPAY ==
[2024-07-17 10:19] VITALS: BP 126/63; PULSE 75; RESP 16; TEMP 36.6; O2SAT 98; BMI 30.5
[2024-07-17] MEDS: IOPAMIDOL-200 (41%);10ML VIAL 10 ML IV (10:34)
[2024-07-17 10:38] VITALS: BP 129/61; PULSE 69; RESP 18; O2SAT 99
[2024-07-17] MEDS: methylPREDNISolone ACETATE 80MG/ML VIAL 80 MG (10:38)
[2024-07-17 10:40] VITALS: BP 129/61; PULSE 69; RESP 18; O2SAT 99
--- NOTE | 2024-07-17 10:43 | P.PCN_ITS ---
Procedure Date: 07/17/24 Time: 10:30 Anesthesiologist:: Wili Aguilar CRNA Complications:: None Pre-procedure Diagnosis:: Degenerative disc cervical spine multilevels. Cervical radiculopathy. Post-procedure Diagnosis:: Same. Indications for Procedure:: Patient is a very pleasant 63-year-old female who comes our clinic today for cervical epidural steroid injection. Patient describes cervical neck pain as well as bilateral arm radicular symptoms at times. She rates her pain 7/10. Patient reports responding significantly to previous cervical epidural steroid injections. Procedure Details:: Procedure:Cervical epidural steroid injection Informed consent was obtained and the risks and benefits of the procedure were explained to the patient. The patient was taken to the procedure room and noninvasive monitors placed, including noninvasive blood pressure cuff and pulse oximeter. The neck was prepped using Chloraprep as a cleansing solution. The C6- C7 interspace was viewed using fluroscopy. The skin and subcutaneous tissues were anesthetized using lidocaine 1.5% and a 25-gauge needle. After this an 18- gauge Touhy epidural needle was placed into the C6-C7 interspace under fluroscopy guidance and advanced using loss of resistance to air until the epidural space was encountered. After confirmation of needle placement in the epidural space using contrast dye, a solution containing normal saline, 2 mL and Depo-Medrol 80 mg was incrementally injected into the cervical epidural space.~ The patient tolerated the procedure well with no complications. The patient was observed in the Pain Clinic and then discharged home neurologi aurora intact. Plan and Disposition:: Patient was discharged without incident.
[2024-07-17 10:44] VITALS: BP 137/82; PULSE 63; RESP 16; O2SAT 100
== END 2024-07-17 10:44 | disposition home or self-care (01) ==
PROVIDERS: PCP Internal Medicine; Visit Provider Nurse Anesthetist, Certified Registered
DX: M50.30 Other cervical disc degeneration, unspecified cervical region (principal); M54.12 Radiculopathy, cervical region
CPT/HCPCS: 62321; J1010; Q9966

== ENCOUNTER 2024-08-01 14:37 | Outpatient (POV) | payer BC, SELFPAY ==
[2024-08-01 14:47] VITALS: BP 108/69; PULSE 70; RESP 14; O2SAT 95; BMI 30.2
--- NOTE | 2024-08-01 15:17 | EXP.PAIN.SOA ---
[facility] Disclaimer: The information contained in this section may have been updated after the patient was seen, as this information can be updated by other users. Medical History HTN (hypertension) GERD (gastroesophageal reflux disease) Hypothyroidism CAD (coronary artery disease) HLD (hyperlipidemia) Myocardial infarct Surgical History H/O colonoscopy H/O dilation and curettage Family History Other Arthritis Cancer Hypertension Social History Smoking Status: Never smoker alcohol intake: never substance use type: denies use current occupational status: other Travel in the last 8 weeks: None housing: house PM Subjective & Objective Subjective Subjective:: Patient is a pleasant 63-year-old female who presents today for follow-up of her cervical epidural steroid injection C6-C7 on 07/17/2024. Patient denies any new trauma or injury from her last appointment. Patient does state that she had at least 80% improvement and no longer is having any headaches. She states it did take about a day and a half for this to kick in that she feels so much better. Patient states she will occasionally have some pain with certain movements but it is often short-lived and will ease down. Patient is prescribed gabapentin from her PCP and compounded cream from our office. She denies any changes or side effects. Her Sloan has been reviewed and is appropriate. Review of Systems: General: No recent weight changes, no fever, no sleep disturbances Respiratory: No cough, no shortness of air, no recurring pulmonary infections Cardiovascular/peripheral vascular: No chest pain, no palpitations, no edema, no shortness of breath Gastrointestinal: No new onset incontinence, normal bowel movements reported Genitourinary: No new onset incontinence Musculoskeletal: Neck pain Psychiatric: [Normal mood/affect] Neurological: [Denies weakness in extremities], [denies balance issues] Pain at rest (0-10 scale): 2 Objective Objective:: Physical Exam: General: Alert and oriented x3, no acute distress, pleasant and cooperative Lungs: Respirations even and unlabored, symmetrical chest expansion Eyes: PERRL Musculoskeletal: Flexion and extension of cervical [spine] within normal limits Neurological: Speech clear, no gross sensory deficit Has patient had previous pain injection?: Yes Percent improvement in pain since last injection: 80% Conservative treatment options previously tried: Home exercise plan Length of treatment: Longer than 12 weeks Meds Home Medications and Allergies Home Medications ?Medication ?Instructions ?Recorded ?Confirmed ?Type aspirin 81 mg tablet,delayed 81 mg PO DAILY Blood Thinner 12/05/17 08/01/24 History release (Adult Low Dose Aspirin) cholecalciferol (vitamin D3) 25 1,000 unit PO DAILY SUPPLIMENT 12/05/17 08/01/24 History mcg (1,000 unit) capsule coenzyme Q10 10 mg capsule (Co 10 mg PO TID [facility] 12/05/17 08/01/24 History Q-10) famotidine 20 mg tablet 20 mg PO DAILY GERD 30 days ##30 12/05/17 08/01/24 History rosuvastatin 10 mg tablet (Crestor) 10 mg PO .3 times weekly 12/05/17 08/01/24 History Cholesterol zolmitriptan 5 mg tablet See Rx Instructions PO .COMPLEX 11/21/23 08/01/24 Rx #10 tabs bisoprolol fumarate 5 mg tablet See Rx Instructions .Route 12/07/23 08/01/24 Rx .COMPLEX #45 tabs escitalopram oxalate 10 mg tablet 10 mg PO DAILY #90 tabs 03/02/24 08/01/24 Rx baclofen 5 mg tablet 5 mg PO TID #42 tabs 03/12/24 08/01/24 Rx prednisone 20 mg tablet 20 mg PO BID #10 tabs 03/12/24 08/01/24 Rx levothyroxine 50 mcg tablet See Rx Instructions .Route 05/07/24 08/01/24 Rx .COMPLEX #90 tabs meclizine 25 mg tablet 25 mg PO TID PRN vertigo #90 tabs 07/16/24 08/01/24 Rx ondansetron 4 mg disintegrating 4 mg PO Q8H PRN nausea and 07/16/24 08/01/24 Rx tablet vomiting #30 tabs New Prescriptions to Start Prescriptions: Allergies Allergy/AdvReac Type Severity Reaction Status Date / Time Penicillins (PENICILLINS) Allergy Intermediate I-ITCHING Verified 07/16/24 11:04 pseudoephedrine (From Allergy Intermediate I-ITCHING Verified 07/16/24 11:04 SUDAFED) clindamycin AdvReac Intermediate Irritation Verified 07/16/24 11:04 of the Esophagus Assessment and Plan *Assessment and plan (1) Cervical radiculopathy: Status: Chronic Category: Medical Code(s): M54.12 - Radiculopathy, cervical region (2) Degenerative disc disease, cervical: Status: Chronic Category: Medical Code(s): M50.30 - Other cervical disc degeneration, unspecified cervical region Plan Patient has had significant improvement following her cervical epidural including complete resolution of her ongoing headaches. Patient will return to clinic in 6 weeks. Patient has been instructed to contact the clinic with any concerns before the next appointment. Dr. García has reviewed this note and agrees with this plan of care. This note was dictated using voice recognition software and make contain errors or omissions. All injections are used with Lidocaine, Bupivacaine and Depo Medrol. Occasionally urine drug screen is needed to verify patient's compliance with our office pain contract. This is ordered based off specific treatments related to chronic pain with the potential to abuse certain medications.
== END 2024-08-01 23:59 | disposition home or self-care (01) ==
LOC: SC.PAIN 14:38
PROVIDERS: PCP Internal Medicine; Visit Provider Nurse Practitioner Family
DX: M50.10 Cervical disc disorder with radiculopathy, unspecified cervical region (principal)
CPT/HCPCS: 99212; G0463

== ENCOUNTER 2024-09-13 14:38 | Outpatient (POV) | payer BC, SELFPAY ==
--- NOTE | 2024-09-13 15:02 | A.OFFVIS_ITS ---
[facility] Disclaimer: The information contained in this section may have been updated after the patient was seen, as this information can be updated by other users. Medical History (Updated 09/13/24 @ 15:05 by Chio Whalen APRN) HTN (hypertension) GERD (gastroesophageal reflux disease) Hypothyroidism CAD (coronary artery disease) HLD (hyperlipidemia) Myocardial infarct Surgical History H/O colonoscopy H/O dilation and curettage Family History Other Arthritis Cancer Hypertension Social History Smoking Status: Never smoker alcohol intake: never substance use type: denies use current occupational status: other Travel in the last 8 weeks?: None housing: house PM Subjective & Objective Subjective Subjective:: Patient is a pleasant 63-year-old female who presents today for worsening neck pain. She rates her pain as 6 out of 10. She denies any new trauma or injury. She does state that she has been having increased neck pain she notes she has been increasing her activity as of lately. Patient states that she has been trying to work in her garden and weeding out of flower bed. Patient states that the pain is not radiating into her upper extremities as it has in the past. Patient states that she is standing there at her neck with increased pressure and even having tenderness to touch. Patient does state what really aggravates her overall symptoms is looking down as well as turning her head primarily to the right side. Patient states this pain does interfere with her ability perform activities of daily living such as cooking and cleaning and that she has continued conservative therapy with minimal changes. Patient is prescribed g abapentin from her primary care. Patient was having some issues with the gabapentin and her compounded cream and that she has not been using this. Patient has continued at home exercising and stretching that was physician guided. Her Sloan has been reviewed and is appropriate. Review of Systems: General: No recent weight changes, no fever, no sleep disturbances Respiratory: No cough, no shortness of air, no recurring pulmonary infections Cardiovascular/peripheral vascular: No chest pain, no palpitations, no edema, no shortness of breath Gastrointestinal: No new onset incontinence, normal bowel movements reported Genitourinary: No new onset incontinence Musculoskeletal: Neck pain Psychiatric: [Normal mood/affect] Neurological: [Denies weakness in extremities], [denies balance issues] Pain at rest (0-10 scale): 6 Objective Objective:: Physical Exam: General: Alert and oriented x3, no acute distress, pleasant and cooperative Lungs: Respirations even and unlabored, symmetrical chest expansion Eyes: PERRL Musculoskeletal: Flexion and extension of cervical [spine] somewhat guarded seco ndary to pain, positive Kemps test Neurological: Speech clear, no gross sensory deficit [facility] October 09, 2022 MRI of the cervical spine without contrast Findings: The visualized posterior fossa and skull base image normally. No discrete cord signal lesions are evident. There is a hemangioma seen within the T3 vertebral body. There is acute bone edema noted at the C5-C6 level. Disc levels: C2-C3: There is a small disc osteophyte complex formation without significant canal or foraminal stenosis. C3-C4: There is a small disc osteophyte complex formation with mild foraminal narrowing. Canal is patent. C4-C5: There is a small disc osteophyte complex formation that contacts and effaces the ventral cord surface. There is mild foraminal narrowing. The canal is patent. C5-C6: There is a small disc osteophyte complex formation with moderate right and mild left foraminal narrowing. There is mild canal narrowing. C6-C7: There is a small disc osteophyte complex formation with moderate foraminal narrowing. Canal is patent C7-T1: There is no significant canal or foraminal stenosis Has patient had previous pain injection?: No Conservative treatment options previously tried: Home exercise plan Length of treatment: Longer than 12 weeks, Physical Therapy Length of treatment: Longer than 6 months and Massage Meds Home Medications and Allergies Home Medications ?Medication ?Instructions ?Recorded ?Confirmed ?Type aspirin 81 mg tablet,delayed 81 mg PO DAILY Blood Thinner 12/05/17 08/01/24 History release (Adult Low Dose Aspirin) cholecalciferol (vitamin D3) 25 1,000 unit PO DAILY SUPPLIMENT 12/05/17 08/01/24 History mcg (1,000 unit) capsule coenzyme Q10 10 mg capsule (Co 10 mg PO TID [employer] 12/05/17 08/01/24 History Q-10) famotidine 20 mg tablet 20 mg PO DAILY GERD 30 days ##30 12/05/17 08/01/24 History rosuvastatin 10 mg tablet (Crestor) 10 mg PO .3 times weekly 12/05/17 08/01/24 History Cholesterol zolmitriptan 5 mg tablet See Rx Instructions PO .COMPLEX 11/21/23 08/01/24 Rx #10 tabs bisoprolol fumarate 5 mg tablet See Rx Instructions .Route 12/07/23 08/01/24 Rx .COMPLEX #45 tabs baclofen 5 mg tablet 5 mg PO TID #42 tabs 03/12/24 08/01/24 Rx prednisone 20 mg tablet 20 mg PO BID #10 tabs 03/12/24 08/01/24 Rx levothyroxine 50 mcg tablet See Rx Instructions .Route 05/07/24 08/01/24 Rx .COMPLEX #90 tabs meclizine 25 mg tablet 25 mg PO TID PRN vertigo #90 tabs 07/16/24 08/01/24 Rx ondansetron 4 mg disintegrating 4 mg PO Q8H PRN nausea and 07/16/24 08/01/24 Rx tablet vomiting #30 tabs escitalopram oxalate 10 mg tablet 10 mg PO DAILY #90 tabs 08/31/24 Rx New Prescriptions to Start Prescriptions: Allergies Allergy/AdvReac Type Severity Reaction Status Date / Time Penicillins (PENICILLINS) Allergy Intermediate I-ITCHING Verified 07/16/24 11:04 pseudoephedrine (From Allergy Intermediate I-ITCHING Verified 07/16/24 11:04 SUDAFED) clindamycin AdvReac Intermediate Irritation Verified 07/16/24 11:04 of the Esophagus Assessment and Plan *Assessment and plan (1) Cervical spondylosis: Status: Acute Category: Medical Code(s): M47.812 - Spondylosis without myelopathy or radiculopathy, cervical region (2) Degenerative disc disease, cervical: Status: Chronic Category: Medical Code(s): M50.30 - Other cervical disc degeneration, unspecified cervical region (3) Disc-osteophyte complex: Status: Chronic Category: Medical Code(s): M50.30 - Other cervical disc degeneration, unspecified cervical region; M25.78 - Osteophyte, vertebrae Plan Patient is experiencing significant pain in her neck that is worse with bending, twisting or lifting. Patient does state that it does interfere with her ability perform activities of daily living such as cooking and cleaning. Patient did have limited range of motion of her cervical spine with a positive Kemps test during today's visit. I did discuss with the patient that I do believe she would benefit from a cervical medial branch block. Risk and benefits were discussed with the patient and she would like to proceed forward with this plan of care. Patient has tried and failed conservative therapy including oral medications, heat and ice, topicals, physical therapy, massage therapy and at home stretching exercise for longer than 12 weeks that was physician guided. Patient has been experiencing chronic neck pain for years. Patient denies any radiating symptoms into her upper extremities. Patient was counseled that if she does get significant relief with her first cervical medial branch block that we will plan on repeating it with the plan to progress forward to a cervical RFA at a later date. Patient agrees with this plan of care. Patient will be scheduled for her first diagnostic cervical medial branch block bilaterally C4-C5 and C5-C6 under fluoroscopy. Patient has been instructed to contact the clinic with any concerns before the next appointment. Dr. García has reviewed this note and agrees with this plan of care. This note was dictated using voice recognition software and make contain errors or omissions. All injections are used with Lidocaine, Bupivacaine and Depo Medrol unless diagnostic which has no steroids. Occasionally urine drug screen is needed to verify patient's compliance with our office pain contract. This is ordered based off specific treatments related to chronic pain with the potential to abuse certain medications.
[2024-09-13 15:04] VITALS: BP 122/82; PULSE 75; RESP 14; O2SAT 98; BMI 30.2
== END 2024-09-13 23:59 | disposition home or self-care (01) ==
LOC: SC.PAIN 14:39
PROVIDERS: PCP Internal Medicine; Visit Provider Nurse Practitioner Family
DX: M47.812 Spondylosis without myelopathy or radiculopathy, cervical region (principal); M50.30 Other cervical disc degeneration, unspecified cervical region; M25.78 Osteophyte, vertebrae; Z73.89 Other problems related to life management difficulty
CPT/HCPCS: 99212; G0463

== ENCOUNTER 2024-10-16 13:15 | Day surgery (SDC) | payer BC, SELFPAY ==
[2024-10-16 13:25] VITALS: BP 136/73; PULSE 64; RESP 18; O2SAT 95; BMI 31.1
[2024-10-16 13:42] VITALS: BP 127/64; PULSE 61; RESP 18; O2SAT 99
[2024-10-16] MEDS: IOPAMIDOL-200 (41%);10ML VIAL 3 ML IV (13:42)
[2024-10-16] MEDS: BUPIVACAINE 0.25% 10ML INJ 25 MG IJ (13:42)
[2024-10-16] MEDS: LIDOCAINE 1% 5ML PF VIAL 5 ML (13:42)
[2024-10-16 13:44] VITALS: BP 127/64; PULSE 61; RESP 18; O2SAT 99
[2024-10-16 13:53] VITALS: BP 120/74; PULSE 60; RESP 16; O2SAT 96
--- NOTE | 2024-10-16 13:55 | P.PCN_ITS ---
Procedure Date: 10/16/24 Time: 13:30 Anesthesiologist:: Wili Aguilar CRNA Complications:: None Pre-procedure Diagnosis:: Degenerative disc cervical spine multilevels. Cervical radiculopathy. Cervical spondylosis. Multilevel cervical facet arthropathy. Chronic headaches. Post-procedure Diagnosis:: Same. Indications for Procedure:: Patient is a very pleasant 63-year-old female who comes our clinic today for ROUND ONE diagnostic cervical medial branch blocks at the bilateral C4-5, C5-6 level. Patient describes chronic headaches, chronic posterior cervical pain, difficulty with cervical flexion, extension, left and right rotation. She rates her pain 8/10. Procedure Details:: Informed consent was obtained and the risk and benefits of the procedure was explained to the patient. Patient was taken to the procedure room where nonin vasive monitors were placed, including noninvasive blood pressure cuff as well as pulse oximeter. The area over the posterior cervical spine was cleansed using chlorhexidine as a cleansing solution. I anesthetized the skin and subcutaneous tissues with 1% Lidocaine. I placed 25 -gauge spinal needles into the facet joint/ medial branches of C5-6, C6-7 bilaterally. Needle placement was confirmed with fluoroscopy. After confirmation of needle placement, each site was injected with 1 mL of 1% lidocaine and 0.25 % Marcaine. Patient tolerated the procedure without difficulty. There were no complications. Patient was discharged without incident. Plan and Disposition:: Patient was reevaluated 10 minutes post procedure. She reports less pain with cervical left and right rotation. Also, she reports her headache is essentially gone. She was discharged without incident.
== END 2024-10-16 13:53 | disposition home or self-care (01) ==
PROVIDERS: PCP Internal Medicine; Visit Provider Nurse Anesthetist, Certified Registered
DX: M50.10 Cervical disc disorder with radiculopathy, unspecified cervical region (principal); M47.22 Other spondylosis with radiculopathy, cervical region; R51.9 Headache, unspecified; M12.9 Arthropathy, unspecified; I25.10 Atherosclerotic heart disease of native coronary artery without angina pectoris; I10 Essential (primary) hypertension; K21.9 Gastro-esophageal reflux disease without esophagitis; E78.5 Hyperlipidemia, unspecified; E03.9 Hypothyroidism, unspecified; I25.2 Old myocardial infarction; Z88.0 Allergy status to penicillin; Z88.8 Allergy status to other drugs, medicaments and biological substances; Z79.82 Long term (current) use of aspirin; Z79.52 Long term (current) use of systemic steroids; Z79.899 Other long term (current) drug therapy
CPT/HCPCS: 64490; 64491; J0665; J2003; Q9966

== ENCOUNTER 2024-11-12 11:18 | Outpatient (POV) | payer BC, SELFPAY ==
--- OUTSIDE RECORDS SUMMARY | 2024-11-12 11:25 | XMS_ITS | Clinical Summary ---
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 Not on file 01/2023 Does Anyone Keep You from Co ntacting Others or Doint Things Outside the Home? Not on file 02/01/2023 Physical Sign of Abuse Present Not on file 1 Housing Stability Answer Date Recorded Current Living Arrangements Not on file 01/23 Potentially Unsafe Housing Conditions Not on yogesh e 02/01/2023 Family and Community Support Answer Erickson e Recorded Help with Day-to-Day Activities Not on file 02/01/2023 Lonely or Isolated Not on file 02/01/2023 Employment Answer Date Recorded Do you want help finding or keeping work or a jaskaran b? Not on file 02/01/2023 Disabilities Answer Date Recorded Concentrating, Remembering, or Making Decisions Difficulty Not on file 02/01/2023 Doing Errands Independently Difficulty Not on fi le 02/01/2023 Education Answer Date Recorded Help with school or training? Not on file Preferred Language Not on file 02/01/2023 Comments Unknown Sex and Gender Information Value Date Recorded Sex Assigned at Not on file Legal Sex Female 1:48 PM EDT Gender Identity Not on file Sexual Orientation Not on file Plan of Treatment Health Maintenance Due Date Last Done Comments ANNUAL PHYSICAL 1960 Annual Gynecologic Pelvic and Breast Exam 1960 HEPATITIS C SCREENING 1960 TDAP/TD VACCINES (1 - Tdap) 11/18/1979 MAMMOGRAM 2000 COLOGUARD 2005 COLON CANCER SCREENING 5 YEAR SIGMOIDOSCOPY 2005 COLONOSCOPY [address] CANCER SCREENING 2005 CT COLONOGRAPHY 2005 FECAL OCCULT BLOOD TEST 2005 FIT Testing (1 year) 2005 Pneumococcal Vaccine 50+ (1 of 1 - PCV) 2010 ZOSTER VACCINE (1 of 2) 2010 COVID-19 Vaccine (1 - season) 2023 INFLUENZA VACCINE 01/23/2025
[2024-11-12 11:28] VITALS: BP 116/89; PULSE 67; RESP 14; O2SAT 97; BMI 30.2
--- NOTE | 2024-11-12 11:52 | EXP.PAIN.SOA ---
[facility] Disclaimer: The information contained in this section may have been updated after the patient was seen, as this information can be updated by other users. Medical History HTN (hypertension) GERD (gastroesophageal reflux disease) Hypothyroidism CAD (coronary artery disease) HLD (hyperlipidemia) Myocardial infarct Surgical History H/O colonoscopy H/O dilation and curettage Family History Other Arthritis Cancer Hypertension Social History Smoking Status: Never smoker alcohol intake: never substance use type: denies use current occupational status: other Travel in the last 8 weeks?: None housing: house PM Subjective & Objective Subjective Subjective:: Patient is a pleasant 63-year-old female who presents today for follow-up of her first cervical medial branch block diagnostically C4-C5 and C5-C6 on 10/16/2024. Today she rates her pain a 1 out of 10 there on her neck. Patient does state from her appointment she is hide 90% improvement and feels like it is still helping. Patient does make mention that she has had recent oral surgery and does have stitches that are scheduled to come out on Tuesday. Her Sloan has been reviewed and is appropriate. Patient is prescribed compounded cream from our office. Review of Systems: General: No recent weight changes, no fever, no sleep disturbances Respiratory: No cough, no shortness of air, no recurring pulmonary infections Cardiovascular/peripheral vascular: No chest pain, no palpitations, no edema, no shortness of breath Gastrointestinal: No new onset incontinence, normal bowel movements reported Genitourinary: No new onset incontinence Musculoskeletal: Neck pain Psychiatric: [Normal mood/affect] Neurological: [Denies weakness in extremities], [denies balance issues] Pain at rest (0-10 scale): 1 Objective Objective:: Physical Exam: General: Alert and oriented x3, no acute distress, pleasant and cooperative Lungs: Respirations even and unlabored, symmetrical chest expansion Eyes: PERRL Musculoskeletal: Flexion and extension of cervical [spine] within normal limits Neurological: Speech clear, no gross sensory deficit Has patient had previous pain injection?: Yes Percent improvement in pain since last injection: 90% Conservative treatment options previously tried: Home exercise plan Length of treatment: Longer than 12 weeks Meds Home Medications and Allergies Home Medications ?Medication ?Instructions ?Recorded ?Confirmed ?Type aspirin 81 mg tablet,delayed 81 mg PO DAILY Blood Thinner 12/05/17 11/12/24 History release (Adult Low Dose Aspirin) cholecalciferol (vitamin D3) 25 1,000 unit PO DAILY SUPPLIMENT 12/05/17 11/12/24 History mcg (1,000 unit) capsule coenzyme Q10 10 mg capsule (Co 10 mg PO TID [employer] 12/05/17 11/12/24 History Q-10) famotidine 20 mg tablet 20 mg PO DAILY GERD 30 days ##30 12/05/17 11/12/24 History rosuvastatin 10 mg tablet (Crestor) 10 mg PO .3 times weekly 12/05/17 11/12/24 History Cholesterol zolmitriptan 5 mg tablet See Rx Instructions PO .COMPLEX 11/21/23 11/12/24 Rx #10 tabs bisoprolol fumarate 5 mg tablet See Rx Instructions .Route 12/07/23 11/12/24 Rx .COMPLEX #45 tabs baclofen 5 mg tablet 5 mg PO TID #42 tabs 03/12/24 11/12/24 Rx prednisone 20 mg tablet 20 mg PO BID #10 tabs 03/12/24 11/12/24 Rx meclizine 25 mg tablet 25 mg PO TID PRN vertigo #90 tabs 07/16/24 11/12/24 Rx ondansetron 4 mg disintegrating 4 mg PO Q8H PRN nausea and 07/16/24 11/12/24 Rx tablet vomiting #30 tabs escitalopram oxalate 10 mg tablet 10 mg PO DAILY #90 tabs 08/31/24 11/12/24 Rx levothyroxine 50 mcg tablet See Rx Instructions .Route 11/01/24 11/12/24 Rx .COMPLEX #90 tabs New Prescriptions to Start Prescriptions: Allergies Allergy/AdvReac Type Severity Reaction Status Date / Time Penicillins (PENICILLINS) Allergy Intermediate I-ITCHING Verified 07/16/24 11:04 pseudoephedrine (From Allergy Intermediate I-ITCHING Verified 07/16/24 11:04 SUDAFED) clindamycin AdvReac Intermediate Irritation Verified 07/16/24 11:04 of the Esophagus Assessment and Plan *Assessment and plan (1) Cervical spondylosis: Status: Acute Category: Medical Code(s): M47.812 - Spondylosis without myelopathy or radiculopathy, cervical region Plan Patient has had significant improvement and does not require any additional injection therapy at this time. Patient will return to clinic in 1 month for reevaluation of symptoms and plan of care. Patient has been instructed to contact the clinic with any concerns before the next appointment. Dr. García has reviewed this note and agrees with this plan of care. This note was dictated using voice recognition software and make contain errors or omissions. All injections are used with Lidocaine, Bupivacaine and dexamethasone. Occasionally urine drug screen is needed to verify patient's compliance with our office pain contract. This is ordered based off specific treatments related to chronic pain with the potential to abuse certain medications.
== END 2024-11-12 23:59 | disposition home or self-care (01) ==
LOC: SC.PAIN 11:19
PROVIDERS: PCP Internal Medicine; Visit Provider Nurse Practitioner Family
DX: M47.812 Spondylosis without myelopathy or radiculopathy, cervical region (principal)
CPT/HCPCS: 99212; G0463

== ENCOUNTER 2024-12-10 11:37 | Outpatient (POV) | payer BC, SELFPAY ==
--- OUTSIDE RECORDS SUMMARY | 2024-12-10 11:39 | XMS_ITS | Clinical Summary ---
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
[2024-12-10 11:44] VITALS: BP 130/69; PULSE 76; RESP 18; O2SAT 98; BMI 30.2
--- NOTE | 2024-12-10 11:52 | A.OFFVIS_ITS ---
[facility] Disclaimer: The information contained in this section may have been updated after the patient was seen, as this information can be updated by other users. Medical History HTN (hypertension) GERD (gastroesophageal reflux disease) Hypothyroidism CAD (coronary artery disease) HLD (hyperlipidemia) Myocardial infarct Surgical History H/O colonoscopy H/O dilation and curettage Family History Other Arthritis Cancer Hypertension Social History Smoking Status: Never smoker alcohol intake: never substance use type: denies use current occupational status: other Travel in the last 8 weeks?: None housing: house PM Subjective & Objective Subjective Subjective:: Patient is a pleasant 64-year-old female who presents today for worsening neck pain. She rates it a 7 out of 10. She denies any new trauma or injury. Patient does state it is still that same neck pain that we have been treating and denies any numbness or tingling into her upper extremities. Patient does state that she has even had several migraines since her last injection has worn off. Patient would like to see about getting scheduled for repeat injection as the last one did provide significant relief with 90% improvement and lasted more than 3 weeks. Patient denies any other changes. She has continued conservative therapy. Her Sloan has been reviewed and is appropriate. Review of Systems: General: No recent weight changes, no fever, no sleep disturbances Respiratory: No cough, no shortness of air, no recurring pulmonary infections Cardiovascular/peripheral vascular: No chest pain, no palpitations, no edema, no shortness of breath Gastrointestinal: No new onset incontinence, normal bowel movements reported Genitourinary: No new onset incontinence Musculoskeletal: Neck pain Psychiatric: [Normal mood/affect] Neurological: [Denies weakness in extremities], [denies balance issues] Pain at rest (0-10 scale): 7 Objective Objective:: Physical Exam: General: Alert and oriented x3, no acute distress, pleasant and cooperative Lungs: Respirations even and unlabored, symmetrical chest expansion Eyes: PERRL Musculoskeletal: Flexion and extension of cervical [spine] somewhat guarded secondary to pain, [antalgic gait noted] positive Kemps test Neurological: Speech clear, no gross sensory deficit Has patient had previous pain injection?: No Conservative treatment options previously tried: Home exercise plan Length of treatment: Longer than 12 weeks Meds Home Medications and Allergies Home Medications ?Medication ?Instructions ?Recorded ?Confirmed ?Type aspirin 81 mg tablet,delayed 81 mg PO DAILY Blood Thin ner 12/05/17 12/10/24 History release (Adult Low Dose Aspirin) cholecalciferol (vitamin D3) 25 1,000 unit PO DAILY MAYA PPLIMENT 12/05/17 12/10/24 History mcg (1,000 unit) capsule coenzyme Q10 10 mg capsule (Co 10 mg PO TID HEART HEAL TH 12/05/17 12/10/24 History Q-10) famotidine 20 mg tablet 20 mg PO DAILY GERD 30 days ##30 12/05/17 12/10/24 History rosuvastatin 10 mg tablet (Crestor) 10 mg PO .3 times weekly 12/05/17 12/10/24 History Cholesterol zolmitriptan 5 mg tablet See Rx Instructions PO .COMP RAY 11/21/23 12/10/24 Rx #10 tabs bisoprolol fumarate 5 mg tablet See Rx Instructions .R oute 12/07/23 12/10/24 Rx .COMPLEX #45 tabs baclofen 5 mg tablet 5 mg PO TID #42 tabs 4 12/10/24 Rx prednisone 20 mg tablet 20 mg PO BID #10 tabs 12/10/24 Rx meclizine 25 mg tablet 25 mg PO TID PRN vertigo #90 tabs 07/16/24 12/10/24 Rx ondansetron 4 mg disintegrating 4 mg PO Q8H PRN nausea and 07/16/24 12/10/24 Rx tablet vomiting #30 tabs escitalopram oxalate 10 mg tablet 10 mg PO DAILY #90 t abs 08/31/24 12/10/24 Rx levothyroxine 50 mcg tablet See Rx Instructions .Route 11/01/24 12/10/24 Rx .COMPLEX #90 tabs New Prescriptions to Start Prescriptions: Allergies Allergy/AdvReac Type Severity Reaction Status Date / Time Penicillins (PENICILLINS) Allergy Intermediate I-ITCHING Verified 07/16/24 11:04 pseudoephedrine (From Allergy Intermediate I-ITCHING Verified 07/16/24 11:04 SUDAFED) clindamycin AdvReac Intermediate Irritation Verified 07/16/24 11:04 of the Esophagus Assessment and Plan *Assessment and plan (1) Cervical spondylosis: Status: Acute Category: Medical Code(s): M47.812 - Spondylosis without myelopathy or radiculopathy, cervical region (2) Migraine headache: Status: Acute Category: Medical Code(s): G43.909 - Migraine, unspecified, not intractable, without status migrainosus (3) Degenerative disc disease, cervical: Status: Chronic Category: Medical Code(s): M50.30 - Other cervical disc degeneration, unspecified cervical region Plan Patient did have a successful first cervical medial branch block and I did review with her regarding repeat diagnostic block. Risk and benefits were discussed with patient and she would like to proceed forward with this plan of care. Patient did have limited range of motion of her cervical spine during today's visit with a positive Kemps test. Patient was counseled if she does get significant improvement with her second diagnostic block we will proceed forward with the cervical RFA at a later date. Patient was counseled to to the location of the RFA that we would do 1 side at a time because it is frequently more painful in the neck region. Patient acknowledges understanding agrees with plan of care. Patient has continued at home stretching and exercise for longer than 12 weeks with no additional changes. Patient has had chronic neck pain for longer than 6 months. Patient did have more than 3 weeks of relief with her first diagnostic cervical medial branch block providing 90% improvement and giving a pain rating of 1 out of 10 at our follow-up visit after that initial procedure. Patient did have improved function with decreased pain. Patient has failed oral medications, heat and ice, topicals. We will schedule her for the second cervical medial branch block bilaterally C4-C5 and C5-C6 under fluoroscopy. Patient is not on any blood thinners. Patient has been instructed to contact the clinic with any concerns before the next appointment. Dr. García has reviewed this note and agrees with this plan of care. This note was dictated using voice recognition software and make contain errors or omissions. All injections are used with Lidocaine, Bupivacaine and dexamethasone unless diagnostic in which no steroids are injected. Occasionally urine drug screen is needed to verify patient's compliance with our office pain contract. This is ordered based off specific treatments related to chronic pain with the potential to abuse certain medications.
== END 2024-12-10 23:59 | disposition home or self-care (01) ==
LOC: SC.PAIN 11:38
PROVIDERS: PCP Internal Medicine; Visit Provider Nurse Practitioner Family
DX: M47.812 Spondylosis without myelopathy or radiculopathy, cervical region (principal); G43.909 Migraine, unspecified, not intractable, without status migrainosus; M50.30 Other cervical disc degeneration, unspecified cervical region

== ENCOUNTER 2025-01-15 10:27 | Day surgery (SDC) | payer BC, SELFPAY ==
[2025-01-15 10:36] VITALS: BP 122/83; PULSE 78; RESP 18; O2SAT 92; BMI 30.5
--- NOTE | 2025-01-15 10:44 | EXP.PAIN.PRO ---
Procedure Date: 01/15/25 Time: 10:40 Anesthesiologist:: Chacho Aguilar CRNA Complications:: None Pre-procedure Diagnosis:: Degenerative disc cervical spine multilevels. Cervical radiculopathy. Cervical spondylosis. Multilevel cervical facet arthropathy. Post-procedure Diagnosis:: Same. Indications for Procedure:: Patient is a very pleasant 64-year-old female who comes our clinic today for round 2 of cervical medial branch blocks/facet injections at the cervical C4-5, C5-6 level. Patient reports 1 month of relief in terms of her cervical spine with previous injection same levels. She reports posterior cervical neck pain that increases with cervical flexion, extension, left and right rotation. Also, frequent headaches. She rates her pain 6/10. Procedure Details:: Informed consent was obtained and the risk and benefits of the procedure was explained to the patient. Patient was taken to the procedure room where noninvasive monitors were placed, including noninvasive blood pressure cuff as well as pulse oximeter. The area over the posterior cervical spine was cleansed using chlorhexidine as a cleansing solution. I anesthetized the skin and subcutaneous tissues with 1% Lidocaine. I placed 25 -gauge spinal needles into the facet joint/ medial branches of C4-5, C5-6 bilaterally. Needle placement was confirmed with fluoroscopy. After confirmation of needle placement, each site was injected with 1 mL of 1% lidocaine and 0.25 % Marcaine and 5 mg of dexamethasone. A total of 10 mg of dexamethasone was used for bilateral medial branch blocks of C4-5, C5-6 bilaterally. Patient tolerated the procedure without difficulty. There were no complications. Patient was discharged without incident. Plan and Disposition:: Patient was discharged without incident.
[2025-01-15] MEDS: BUPIVACAINE 0.25% 10ML INJ 25 MG IJ (10:46)
[2025-01-15] MEDS: LIDOCAINE 1% 5ML PF VIAL 5 ML (10:47)
[2025-01-15] MEDS: IOPAMIDOL-200 (41%);10ML VIAL 3 ML IV (10:53)
[2025-01-15 10:54] VITALS: BP 138/74; PULSE 65; RESP 18; O2SAT 95
[2025-01-15 11:01] VITALS: BP 189/50; PULSE 60; RESP 18; O2SAT 96
[2025-01-15 11:02] VITALS: BP 189/50; PULSE 60; RESP 18; O2SAT 96
== END 2025-01-15 10:54 | disposition home or self-care (01) ==
PROVIDERS: PCP Internal Medicine; Visit Provider Nurse Anesthetist, Certified Registered
DX: M50.121 Cervical disc disorder at C4-C5 level with radiculopathy (principal); M50.122 Cervical disc disorder at C5-C6 level with radiculopathy; M47.22 Other spondylosis with radiculopathy, cervical region; I25.10 Atherosclerotic heart disease of native coronary artery without angina pectoris; K21.9 Gastro-esophageal reflux disease without esophagitis; I10 Essential (primary) hypertension; E78.5 Hyperlipidemia, unspecified; E03.9 Hypothyroidism, unspecified; I25.2 Old myocardial infarction; Z88.8 Allergy status to other drugs, medicaments and biological substances; Z88.1 Allergy status to other antibiotic agents; Z79.82 Long term (current) use of aspirin; Z79.890 Hormone replacement therapy; Z79.899 Other long term (current) drug therapy
CPT/HCPCS: 64490; 64491; J0665; J2003; Q9966

== ENCOUNTER 2025-01-28 16:20 | Outpatient (CLI) | payer BC, SELFPAY ==
[2025-01-28 18:20] LABS: Hematocrit 41.4 % (37.0-47.0); Hemoglobin 13.6 g/dL (12.2-16.2); Immature Granulocytes % 0.3 %; Mean Corpuscular HGB Conc 32.9 g/dL (31.8-35.4); Mean Corpuscular Hemoglobin 31.1 pg (27.0-31.2); Mean Corpuscular Volume 94.7 fl (81-99); Nucleated Red Blood Cells % 0 %; Platelet Count 243 K/mm3 (142-424); Red Blood Count 4.37 M/mm3 (4.20-5.40); Red Cell Distribution Width-SD 42.5 fL; White Blood Count 6.8 K/mm3 (4.8-10.8)
[2025-01-28 19:06] LABS: Alanine Aminotransferase 32 U/L (12-78); Albumin Level 4.1 g/dl (3.5-5.0); Albumin/Globulin Ratio 1.8 (1.1-1.8); Alkaline Phosphatase 90 U/L (38-126); Anion Gap 13.1 mEq/L (5-15); Aspartate Amino Transferase 29 U/L (14-36); Bilirubin,Total 0.6 mg/dl (0.2-1.3); Blood Urea Nitrogen 10 mg/dl (7-17); Calcium 9.2 mg/dl (8.4-10.2); Carbon Dioxide 28 mmol/L (22.0-30.0); Chloride 103 mmol/L (98-107); Cholesterol 240 mg/dl (140-200); Creatinine,Serum 0.90 mg/dl (0.52-1.04); Estimated Glomerular Filt Rate 63 ml/min (>60); GFR (African American) 76 ML/MIN (>60); Globulin 2.3 g/dL (1.3-3.2); Glucose 95 mg/dl (74-100); HDL Cholesterol 35 mg/dl (40-60); Potassium 4.1 mmoL/L (3.5-5.1); Sodium 140 mmol/L (136-145); Total Protein,Serum 6.4 g/dl (6.3-8.2); Triglycerides 283 mg/dl (30-150)
[2025-01-28 20:30] LABS: Thyroid Stimulating Hormone 2.93 uIU/mL (0.465-4.68)
--- OUTSIDE RECORDS SUMMARY | 2025-01-29 01:50 | XMS_ITS | Clinical Summary ---
Author Organization [email or web address] Address [address] [place] [address] Care Team Providers Care [facility] Coordinator Name Role Phone Unavailable Primary Care Provider [...] 2010 ZOSTER VACCINE (1 of 2) 2010 INFLUENZA VACCINE 11/23/2024
== END 2025-01-28 23:59 ==
LOC: LAB.DROPOF 01-29 01:48
PROVIDERS: PCP Internal Medicine; Visit Provider Internal Medicine
DX: E03.9 Hypothyroidism, unspecified (principal); E78.5 Hyperlipidemia, unspecified; I10 Essential (primary) hypertension; I25.10 Atherosclerotic heart disease of native coronary artery without angina pectoris
CPT/HCPCS: 80053; 80061; 84443; 85025